=== PATIENT | female | born 1930 | race Caucasian/White ===

== ENCOUNTER 2016-07-23 19:20 | Inpatient (IN) | payer MEDICARE ==
[~2016-07-23] VITALS: Ht 152.4 cm; Wt 57.6 kg
[~2016-07-23 19:20] MED LIST: ALEVE220 MG PO; ASPIRIN81 M1 PO; ATIVAN0.5 MG PO; CHEW-IRON27 MG PO; CIPROFLOXACIN500 MG PO; CITALOPRAM HYDR20 MG PO; DILTIAZEM HCL180 MG PO; DOXYCYCLINE100 MG PO; HYDROCODONE BIT1 T11 PO; LANTUS SOLOS100 U/M1 SC; LEVAQUIN750 M1 PO; LOMOTIL 0.025 M1 TA1 PO; LOPRESSOR25 MG PO; LOSARTAN POTASS50 M1 PO; MIRALAX17 GM/DOSE PO; MIRTAZAPINE15 MG PO; MIRTAZAPINE30 M2 PO; Magnesium Oxid400 MG PO; NEURONTIN100 MG PO; NOVOLOG FLEX100 U/ML SC; OMEPRAZOLE D/R20 MG PO; PERCOCET 325 MG1 TA5 PO; PROBIOTIC FORMU1 CA1 PO; TEMAZEPAM30 MG PO; VENLAFAXINE HYD75 MG PO; VENTOLIN H0.09 MG/AC INH; VITAMIN D5000 I2 PO; XARE15TA PO
[2016-07-23 19:30] VITALS: BP 171/95
[2016-07-23 20:02] LABS: BASO % 0.2 % (0.0-1.0); EOS % 0.2 % (1.0-4.0); HEMATOCRIT 41.7 % (37.0-47.0); HEMOGLOBIN 13.7 g/dl (12.0-16.0); IG # 0.1 10*3/uL (0.0-0.1); LYMPH # 2.4 10*3/uL (1.3-4.4); LYMPH % 15.9 % (27.0-41.0); MEAN CELL VOLUME 83.7 fl (81.0-99.0); MEAN CORPUSCULAR HGB 27.5 pg (27.0-31.0); MEAN CORPUSCULAR HGB CONC 32.9 g/dl (33.0-37.0); MEAN PLATELET VOLUME 11.8 fl (9.6-12.3); MONO # 1.3 10*3/uL (0.1-1.0); MONO % 8.5 % (3.0-9.0); NEUT # 11.3 10*3/uL (2.3-7.9); NEUT % 74.9 % (47.0-73.0); PLATELET COUNT AUTOMATED 240 10*3/uL (130-400); RED BLOOD COUNT 4.98 10*6/uL (4.10-5.10); RED CELL DISTRI WIDTH 14.7 % (0-14.5); WHITE BLOOD COUNT 15.1 10*3/uL (4.8-10.8)
[2016-07-23 20:26] LABS: BILIRUBIN, TOTAL 0.7 mg/dl (0.2-1.0); POTASSIUM 4.9 mmol/L (3.5-5.1); TOTAL PROTEIN 8.8 gm/dL (6.4-8.2)
[2016-07-23 20:35] VITALS: BP 144/66
[2016-07-23 20:49] LABS: TROPONIN I 0.047 ng/ml (<0.045)
[2016-07-23 21:46] LABS: BILIRUBIN 1+ (NEGATIVE); BLOOD 2+ (NEGATIVE); CLARITY SL CLOUDY (CLEAR); COLOR YELLOW (YELLOW); GLUCOSE NEGATIVE (NEGATIVE); KETONE 1+ (NEGATIVE); LEUKO ESTERASE 2+ (NEGATIVE); NITRITE NEGATIVE (NEGATIVE); PH 7.5 (5.0-9.0); PROTEIN 2+ (NEGATIVE); UROBILINOGEN 0.2 E.U./dl (0.2-1.0)
[2016-07-23 21:52] LABS: BACTERIA 4+; URINE REFLEX COMMENT YES (NO); WBC 16-20 wbc/hpf (0-5)
[2016-07-23 21:58] LABS: LA>2 REFLEX 2 HR DRAW NOW
[2016-07-23 23:15] VITALS: BP 162/86
[2016-07-24] VITALS: BP 162/86
[2016-07-24 06:39] LABS: BASO % 0.2 % (0.0-1.0); EOS # 0.1 10*3/uL (0.0-0.4); EOS % 0.6 % (1.0-4.0); LYMPH # 2.7 10*3/uL (1.3-4.4); LYMPH % 27.7 % (27.0-41.0); MEAN CELL VOLUME 85.7 fl (81.0-99.0); MEAN CORPUSCULAR HGB 27.8 pg (27.0-31.0); MEAN CORPUSCULAR HGB CONC 32.5 g/dl (33.0-37.0); MEAN PLATELET VOLUME 10.9 fl (9.6-12.3); MONO # 0.7 10*3/uL (0.1-1.0); MONO % 6.9 % (3.0-9.0); NEUT # 6.1 10*3/uL (2.3-7.9); NEUT % 64.4 % (47.0-73.0); PLATELET COUNT AUTOMATED 172 10*3/uL (130-400); RED BLOOD COUNT 3.99 10*6/uL (4.10-5.10); RED CELL DISTRI WIDTH 14.6 % (0-14.5); WHITE BLOOD COUNT 9.6 10*3/uL (4.8-10.8)
[2016-07-24 06:40] LABS: HEMATOCRIT 34.2 % (37.0-47.0); HEMOGLOBIN 11.1 g/dl (12.0-16.0)
[2016-07-24 07:06] LABS: BUN 24 mg/dl (7-24); CARBON DIOXIDE 31 mmol/L (21-32); CHLORIDE 102 mmol/L (98-107); CHOLESTEROL 228 mg/dL (<200); EST GLOM FILT AFRICAN AMERICAN > 60 ml/min; GLUCOSE 173 mg/dL (65-99); MAGNESIUM 1.5 mg/dL (1.5-2.1); PHOSPHOROUS 2.4 mg/dL (2.5-4.9); SODIUM 141 mmol/L (136-145); TRIGLYCERIDES 105 mg/dl (<150); VLDL CHOLESTEROL 21 mg/dL (6-40)
[2016-07-24 07:07] LABS: PROTHROMBIN TIME 10.5 SECONDS (9.0-12.4)
[2016-07-24 07:15] LABS: HDL CHOLESTEROL 84 mg/dl (40-60); LDL CHOLESTEROL 123 mg/dL (9-159)
[2016-07-24 07:44] LABS: POTASSIUM 3.2 mmol/L (3.5-5.1)
[2016-07-24 08:00] VITALS: BP 132/88
[2016-07-24 12:00] VITALS: BP 138/86
[2016-07-24 16:00] VITALS: BP 136/48
[2016-07-24 20:00] VITALS: BP 147/66
[2016-07-25] VITALS: BP 188/80
[2016-07-25 06:11] LABS: BASO % 0.5 % (0.0-1.0); EOS # 0.2 10*3/uL (0.0-0.4); EOS % 2.9 % (1.0-4.0); LYMPH # 2.7 10*3/uL (1.3-4.4); LYMPH % 40.2 % (27.0-41.0); MEAN CELL VOLUME 87.9 fl (81.0-99.0); MEAN CORPUSCULAR HGB 27.6 pg (27.0-31.0); MEAN CORPUSCULAR HGB CONC 31.4 g/dl (33.0-37.0); MEAN PLATELET VOLUME 11.8 fl (9.6-12.3); MONO # 0.5 10*3/uL (0.1-1.0); MONO % 7.4 % (3.0-9.0); NEUT # 3.2 10*3/uL (2.3-7.9); NEUT % 48.7 % (47.0-73.0); PLATELET COUNT AUTOMATED 149 10*3/uL (130-400); RED BLOOD COUNT 3.98 10*6/uL (4.10-5.10); RED CELL DISTRI WIDTH 14.8 % (0-14.5); WHITE BLOOD COUNT 6.6 10*3/uL (4.8-10.8)
[2016-07-25 06:40] LABS: ALBUMIN 2.8 gm/dl (3.1-4.5); ALKALINE PHOSPHATASE 74 U/L (45-117); BILIRUBIN, TOTAL 0.3 mg/dl (0.2-1.0); BUN 16 mg/dl (7-24); CARBON DIOXIDE 31 mmol/L (21-32); CHLORIDE 109 mmol/L (98-107); EST GLOM FILT AFRICAN AMERICAN > 60 ml/min; GLUCOSE 162 mg/dL (65-99); POTASSIUM 3.7 mmol/L (3.5-5.1); SGOT/AST 30 IU/L (3-35); SGPT/ALT 24 U/L (12-78); SODIUM 145 mmol/L (136-145); TOTAL PROTEIN 6.2 gm/dL (6.4-8.2)
[2016-07-25 08:00] VITALS: BP 150/58
[2016-07-25 12:00] VITALS: BP 153/47
[2016-07-25 16:00] VITALS: BP 148/62; BP 162/96
[2016-07-25 20:00] VITALS: BP 155/53
[2016-07-26] VITALS: BP 112/58
[2016-07-26 08:00] VITALS: BP 178/72
[2016-07-26] MEDS ORDERED: BACTRIM 400 MG-1 TAB PO (10:14)
[2016-07-26 12:25] LABS: FOLIC ACID > 24.00 ng/mL (>5.38)
== END 2016-07-26 11:43 | disposition home health service (06) | DRG 871 ==
LOC: ED 19:20 → 4E 22:25 → EDHOLD 22:25 → 4E 22:34
PROVIDERS: Internal Medicine; Internal Medicine Hospice and Palliative Medicine; Registered Nurse
DX: A41.9 Sepsis, unspecified organism (principal); G93.41 Metabolic encephalopathy; N17.0 Acute kidney failure with tubular necrosis; E87.2 Acidosis; J96.11 Chronic respiratory failure with hypoxia; N30.01 Acute cystitis with hematuria; F33.9 Major depressive disorder, recurrent, unspecified; R65.20 Severe sepsis without septic shock; E86.0 Dehydration; J44.9 Chronic obstructive pulmonary disease, unspecified; I25.10 Atherosclerotic heart disease of native coronary artery without angina pectoris; E55.9 Vitamin D deficiency, unspecified; F41.1 Generalized anxiety disorder; I10 Essential (primary) hypertension; K21.9 Gastro-esophageal reflux disease without esophagitis; E11.65 Type 2 diabetes mellitus with hyperglycemia; M54.5 Low back pain; B96.20 Unspecified Escherichia coli [E. coli] as the cause of diseases classified elsewhere; B96.89 Other specified bacterial agents as the cause of diseases classified elsewhere; Z96.653 Presence of artificial knee joint, bilateral; Z87.891 Personal history of nicotine dependence; Z79.51 Long term (current) use of inhaled steroids; Z99.81 Dependence on supplemental oxygen; Z79.4 Long term (current) use of insulin; Z79.82 Long term (current) use of aspirin; Z90.710 Acquired absence of both cervix and uterus; Z79.899 Other long term (current) drug therapy

== ENCOUNTER 2016-08-18 14:49 | Inpatient (IN) | payer MEDICARE ==
[~2016-08-18] VITALS: Ht 152.4 cm; Wt 60.6 kg
[~2016-08-18 14:49] MED LIST changes: +BACTRIM 400 MG-1 TAB PO
[2016-08-18 14:58] VITALS: BP 173/68
[2016-08-18 15:19] LABS: BASO % 0.2 % (0.0-1.0); EOS # 0.3 10*3/uL (0.0-0.4); EOS % 2.9 % (1.0-4.0); HEMATOCRIT 36.6 % (37.0-47.0); HEMOGLOBIN 11.4 g/dl (12.0-16.0); LYMPH # 2.9 10*3/uL (1.3-4.4); LYMPH % 25.6 % (27.0-41.0); MEAN CELL VOLUME 89.9 fl (81.0-99.0); MEAN CORPUSCULAR HGB CONC 31.1 g/dl (33.0-37.0); MEAN PLATELET VOLUME 11.4 fl (9.6-12.3); MONO # 0.7 10*3/uL (0.1-1.0); NEUT # 7.3 10*3/uL (2.3-7.9); PLATELET COUNT AUTOMATED 148 10*3/uL (130-400); RED BLOOD COUNT 4.07 10*6/uL (4.10-5.10); RED CELL DISTRI WIDTH 14.9 % (0-14.5); WHITE BLOOD COUNT 11.3 10*3/uL (4.8-10.8)
[2016-08-18 15:28] LABS: INTERNATIONAL NORM RATIO 0.9 (2.0-3.5); PROTHROMBIN TIME 9.7 SECONDS (9.0-12.4)
[2016-08-18 15:35] LABS: ALKALINE PHOSPHATASE 110 U/L (45-117); BILIRUBIN, TOTAL 0.3 mg/dl (0.2-1.0); BUN 25 mg/dl (7-24); CARBON DIOXIDE 37 mmol/L (21-32); CHLORIDE 103 mmol/L (98-107); EST GLOM FILT AFRICAN AMERICAN > 60 ml/min; GLUCOSE 170 mg/dL (65-99); POTASSIUM 4.8 mmol/L (3.5-5.1); SGOT/AST 15 IU/L (3-35); SGPT/ALT 17 U/L (12-78); SODIUM 143 mmol/L (136-145); TROPONIN I < 0.015 ng/ml (<0.045)
[2016-08-18 15:56] LABS: BILIRUBIN NEGATIVE (NEGATIVE); BLOOD NEGATIVE (NEGATIVE); CLARITY SL CLOUDY (CLEAR); COLOR YELLOW (YELLOW); GLUCOSE 1+ (NEGATIVE); KETONE NEGATIVE (NEGATIVE); LEUKO ESTERASE NEGATIVE (NEGATIVE); NITRITE NEGATIVE (NEGATIVE); PROTEIN TRACE (NEGATIVE); SPECIFIC GRAVITY 1.025 (1.005-1.030); UROBILINOGEN 0.2 E.U./dl (0.2-1.0)
[2016-08-18 16:10] LABS: URINE REFLEX COMMENT NO (NO); WBC 0-2 wbc/hpf (0-5)
[2016-08-18 16:16] VITALS: BP 183/78
[2016-08-18] MEDS ORDERED: ACETAMINOPHEN-H1 TA2 PO (17:30)
[2016-08-18] MEDS ORDERED: PROBIOTIC250 MG PO ×2 (17:32→18:51)
[2016-08-18 17:35] VITALS: BP 174/55
[2016-08-18 18:00] VITALS: BP 208/85
[2016-08-18] MEDS ORDERED: CARDIZEM CD180 MG PO (18:50)
[2016-08-18 20:00] VITALS: BP 170/82
[2016-08-18 21:00] VITALS: BP 164/69
[2016-08-19] VITALS: BP 122/64
[2016-08-19 06:51] LABS: BASO % 0.2 % (0.0-1.0); EOS # 0.2 10*3/uL (0.0-0.4); EOS % 2.1 % (1.0-4.0); HEMOGLOBIN 11.4 g/dl (12.0-16.0); LYMPH # 2.3 10*3/uL (1.3-4.4); LYMPH % 24.9 % (27.0-41.0); MEAN CORPUSCULAR HGB 28.5 pg (27.0-31.0); MEAN CORPUSCULAR HGB CONC 31.7 g/dl (33.0-37.0); MEAN PLATELET VOLUME 11.2 fl (9.6-12.3); MONO # 0.7 10*3/uL (0.1-1.0); MONO % 7.6 % (3.0-9.0); NEUT % 64.9 % (47.0-73.0); PLATELET COUNT AUTOMATED 144 10*3/uL (130-400); WHITE BLOOD COUNT 9.2 10*3/uL (4.8-10.8)
[2016-08-19 07:29] LABS: BUN 17 mg/dl (7-24); CARBON DIOXIDE 37 mmol/L (21-32); CHLORIDE 106 mmol/L (98-107); EST GLOM FILT AFRICAN AMERICAN > 60 ml/min; GLUCOSE 161 mg/dL (65-99); SODIUM 146 mmol/L (136-145)
[2016-08-19 07:39] LABS: THYROID STIM HORMONE (HS) 0.957 uIU/ml (0.358-4.75)
[2016-08-19 07:51] LABS: POTASSIUM 3.8 mmol/L (3.5-5.1)
[2016-08-19 08:00] VITALS: BP 190/98; BP 198/100
[2016-08-19 12:00] VITALS: BP 148/74
[2016-08-19 16:00] VITALS: BP 126/53
[2016-08-19 20:00] VITALS: BP 146/60
[2016-08-20] VITALS: BP 113/67
[2016-08-20 08:00] VITALS: BP 161/61
[2016-08-20] MEDS ORDERED: NATURE'S BLEN1000 IU PO (11:27)
[2016-08-20] MEDS ORDERED: LISINOPRIL5 MG PO (11:27)
[2016-08-20] MEDS ORDERED: LANTUS SOLOS100 U/M1 SC (11:27)
[2016-08-20] MEDS ORDERED: GLUCOPHAGE500 MG PO (11:27)
[2016-08-20 12:00] VITALS: BP 120/56
== END 2016-08-20 14:47 | disposition home health service (06) | DRG 640 ==
LOC: ED 14:49 → 4E 17:03
PROVIDERS: Internal Medicine Hospice and Palliative Medicine; Physician Assistant
DX: E86.0 Dehydration (principal); G93.41 Metabolic encephalopathy; J96.11 Chronic respiratory failure with hypoxia; E44.0 Moderate protein-calorie malnutrition; I16.1 Hypertensive emergency; F03.90 Unspecified dementia, unspecified severity, without behavioral disturbance, psychotic disturbance, mood disturbance, and anxiety; E11.65 Type 2 diabetes mellitus with hyperglycemia; Z99.81 Dependence on supplemental oxygen; I25.10 Atherosclerotic heart disease of native coronary artery without angina pectoris; J44.9 Chronic obstructive pulmonary disease, unspecified; Z96.653 Presence of artificial knee joint, bilateral; F32.9 Major depressive disorder, single episode, unspecified; D64.9 Anemia, unspecified; D72.829 Elevated white blood cell count, unspecified; K21.9 Gastro-esophageal reflux disease without esophagitis; W19.XXXA Unspecified fall, initial encounter; E55.9 Vitamin D deficiency, unspecified; F41.1 Generalized anxiety disorder; I10 Essential (primary) hypertension; M54.5 Low back pain; Z90.710 Acquired absence of both cervix and uterus; Z87.891 Personal history of nicotine dependence; I25.2 Old myocardial infarction; Z79.82 Long term (current) use of aspirin; Z79.4 Long term (current) use of insulin; Z79.899 Other long term (current) drug therapy; Z68.26 Body mass index [BMI] 26.0-26.9, adult; R53.1 Weakness

== ENCOUNTER 2016-09-24 15:24 | Inpatient (IN) | payer MEDICARE ==
[~2016-09-24] VITALS: Ht 157.5 cm; Wt 58.7 kg
[~2016-09-24 15:24] MED LIST changes: +ACETAMINOPHEN-H1 TA2 PO; +CARDIZEM CD180 MG PO; +GLUCOPHAGE500 MG PO; +LISINOPRIL5 MG PO; +NATURE'S BLEN1000 IU PO; +PROBIOTIC250 MG PO
[2016-09-24 16:12] VITALS: BP 146/77
[2016-09-24] MEDS ORDERED: METFORMIN500 MG PO (16:14)
[2016-09-24 16:49] LABS: BASO # 0.1 10*3/uL (0.0-0.1); BASO % 0.7 % (0.0-1.0); EOS # 0.4 10*3/uL (0.0-0.4); EOS % 4.4 % (1.0-4.0); HEMOGLOBIN 12.1 g/dl (12.0-16.0); LYMPH # 3.1 10*3/uL (1.3-4.4); LYMPH % 35.2 % (27.0-41.0); MEAN CELL VOLUME 91.8 fl (81.0-99.0); MEAN CORPUSCULAR HGB 28.5 pg (27.0-31.0); MEAN PLATELET VOLUME 11.3 fl (9.6-12.3); MONO # 0.5 10*3/uL (0.1-1.0); MONO % 5.6 % (3.0-9.0); NEUT # 4.7 10*3/uL (2.3-7.9); NEUT % 53.9 % (47.0-73.0); PLATELET COUNT AUTOMATED 259 10*3/uL (130-400); RED BLOOD COUNT 4.25 10*6/uL (4.10-5.10); RED CELL DISTRI WIDTH 14.5 % (0-14.5); WHITE BLOOD COUNT 8.7 10*3/uL (4.8-10.8)
[2016-09-24 17:05] LABS: ALBUMIN 3.4 gm/dl (3.1-4.5); ALKALINE PHOSPHATASE 83 U/L (45-117); BILIRUBIN, TOTAL 0.3 mg/dl (0.2-1.0); BUN 22 mg/dl (7-24); C-REACTIVE PROTEIN 2.78 MG/DL (0-0.3); CARBON DIOXIDE 32 mmol/L (21-32); CHLORIDE 102 mmol/L (98-107); CKMB 0.8 ng/ml (0.5-3.6); CPK 32 U/L (26-192); EST GLOM FILT AFRICAN AMERICAN 45 ml/min; GLUCOSE 175 mg/dL (65-99); MAGNESIUM 1.7 mg/dL (1.5-2.1); SGOT/AST 17 IU/L (3-35); SGPT/ALT 15 U/L (12-78); SODIUM 143 mmol/L (136-145); TOTAL PROTEIN 8.1 gm/dL (6.4-8.2)
[2016-09-24 17:07] LABS: PROTHROMBIN TIME 10.3 SECONDS (9.0-12.4); TROPONIN I < 0.015 ng/ml (<0.045)
[2016-09-24 17:07] LABS: BILIRUBIN 1+ (NEGATIVE); BLOOD TRACE-LYSED (NEGATIVE); CLARITY SL CLOUDY (CLEAR); COLOR YELLOW (YELLOW); GLUCOSE NEGATIVE (NEGATIVE); KETONE TRACE (NEGATIVE); LEUKO ESTERASE 1+ (NEGATIVE); NITRITE NEGATIVE (NEGATIVE); PH 5.5 (5.0-9.0); PROTEIN TRACE (NEGATIVE); SPECIFIC GRAVITY 1.025 (1.005-1.030); UROBILINOGEN 0.2 E.U./dl (0.2-1.0)
[2016-09-24 17:25] LABS: BACTERIA 2+; WBC 21-30 wbc/hpf (0-5)
[2016-09-24 17:26] LABS: URINE REFLEX COMMENT YES (NO)
[2016-09-24 18:42] VITALS: BP 165/89
[2016-09-24 19:10] VITALS: BP 152/80
[2016-09-24 19:30] VITALS: BP 143/89
[2016-09-24 19:50] VITALS: BP 143/89
[2016-09-25] VITALS: BP 150/52
[2016-09-25 04:00] VITALS: BP 160/83
[2016-09-25 06:21] LABS: BUN 15 mg/dl (7-24); CARBON DIOXIDE 31 mmol/L (21-32); CHLORIDE 106 mmol/L (98-107); EST GLOM FILT AFRICAN AMERICAN > 60 ml/min; GLUCOSE 140 mg/dL (65-99); MAGNESIUM 1.3 mg/dL (1.5-2.1); POTASSIUM 3.7 mmol/L (3.5-5.1); SODIUM 143 mmol/L (136-145)
[2016-09-25 06:25] LABS: PHOSPHOROUS 2.8 mg/dL (2.5-4.9)
[2016-09-25 06:29] LABS: BASO % 0.4 % (0.0-1.0); EOS # 0.4 10*3/uL (0.0-0.4); EOS % 5.5 % (1.0-4.0); HEMATOCRIT 32.5 % (37.0-47.0); HEMOGLOBIN 10.3 g/dl (12.0-16.0); LYMPH # 2.9 10*3/uL (1.3-4.4); LYMPH % 43.2 % (27.0-41.0); MEAN CELL VOLUME 91.3 fl (81.0-99.0); MEAN CORPUSCULAR HGB 28.9 pg (27.0-31.0); MEAN CORPUSCULAR HGB CONC 31.7 g/dl (33.0-37.0); MEAN PLATELET VOLUME 11.3 fl (9.6-12.3); MONO # 0.6 10*3/uL (0.1-1.0); MONO % 8.4 % (3.0-9.0); NEUT # 2.8 10*3/uL (2.3-7.9); NEUT % 42.2 % (47.0-73.0); PLATELET COUNT AUTOMATED 197 10*3/uL (130-400); RED BLOOD COUNT 3.56 10*6/uL (4.10-5.10); RED CELL DISTRI WIDTH 14.1 % (0-14.5); WHITE BLOOD COUNT 6.7 10*3/uL (4.8-10.8)
[2016-09-25 06:30] LABS: PROTHROMBIN TIME 10.9 SECONDS (9.0-12.4)
[2016-09-25 08:00] VITALS: BP 128/68
[2016-09-25 12:00] VITALS: BP 116/67
[2016-09-25] MEDS ORDERED: TEMOVATE0.05% T (13:20)
[2016-09-25 16:00] VITALS: BP 163/71
[2016-09-25 20:00] VITALS: BP 149/55
[2016-09-26] VITALS: BP 138/60
[2016-09-26 05:28] VITALS: BP 160/70
[2016-09-26 05:47] LABS: BASO % 0.3 % (0.0-1.0); EOS # 0.4 10*3/uL (0.0-0.4); EOS % 5.1 % (1.0-4.0); HEMATOCRIT 32.5 % (37.0-47.0); HEMOGLOBIN 10.2 g/dl (12.0-16.0); LYMPH # 2.2 10*3/uL (1.3-4.4); LYMPH % 31.2 % (27.0-41.0); MEAN CELL VOLUME 91.5 fl (81.0-99.0); MEAN CORPUSCULAR HGB 28.7 pg (27.0-31.0); MEAN CORPUSCULAR HGB CONC 31.4 g/dl (33.0-37.0); MEAN PLATELET VOLUME 11.3 fl (9.6-12.3); MONO # 0.6 10*3/uL (0.1-1.0); MONO % 8.2 % (3.0-9.0); NEUT # 3.9 10*3/uL (2.3-7.9); NEUT % 54.9 % (47.0-73.0); PLATELET COUNT AUTOMATED 182 10*3/uL (130-400); RED BLOOD COUNT 3.55 10*6/uL (4.10-5.10); RED CELL DISTRI WIDTH 14.1 % (0-14.5); WHITE BLOOD COUNT 7.1 10*3/uL (4.8-10.8)
[2016-09-26 05:58] LABS: ALBUMIN 2.7 gm/dl (3.1-4.5); ALKALINE PHOSPHATASE 60 U/L (45-117); BILIRUBIN, TOTAL 0.1 mg/dl (0.2-1.0); BUN 7 mg/dl (7-24); CARBON DIOXIDE 32 mmol/L (21-32); CHLORIDE 109 mmol/L (98-107); EST GLOM FILT AFRICAN AMERICAN > 60 ml/min; POTASSIUM 3.4 mmol/L (3.5-5.1); SGOT/AST 18 IU/L (3-35); SGPT/ALT 12 U/L (12-78); SODIUM 149 mmol/L (136-145); TOTAL PROTEIN 6.4 gm/dL (6.4-8.2)
[2016-09-26 06:21] LABS: GLUCOSE 47 mg/dL (65-99)
[2016-09-26 08:00] VITALS: BP 174/50
[2016-09-26 12:00] VITALS: BP 144/54
[2016-09-26] MEDS ORDERED: LEVEMIR10 ML SC (12:59)
[2016-09-26] MEDS ORDERED: BACTRIM DS 8001 TAB PO (12:59)
== END 2016-09-26 15:50 | disposition home health service (06) | DRG 682 ==
LOC: ED 15:24 → EDHOLD 18:13 → 4E 18:13
PROVIDERS: Emergency Medicine; Family Medicine; Internal Medicine
DX: N17.0 Acute kidney failure with tubular necrosis (principal); G93.41 Metabolic encephalopathy; E44.0 Moderate protein-calorie malnutrition; E11.65 Type 2 diabetes mellitus with hyperglycemia; N39.0 Urinary tract infection, site not specified; I25.10 Atherosclerotic heart disease of native coronary artery without angina pectoris; Z96.653 Presence of artificial knee joint, bilateral; E86.0 Dehydration; J44.9 Chronic obstructive pulmonary disease, unspecified; F41.9 Anxiety disorder, unspecified; I10 Essential (primary) hypertension; F32.9 Major depressive disorder, single episode, unspecified; R26.81 Unsteadiness on feet; B96.1 Klebsiella pneumoniae [K. pneumoniae] as the cause of diseases classified elsewhere; K21.9 Gastro-esophageal reflux disease without esophagitis; D64.9 Anemia, unspecified; E83.42 Hypomagnesemia; Z88.8 Allergy status to other drugs, medicaments and biological substances; Z90.710 Acquired absence of both cervix and uterus; Z87.891 Personal history of nicotine dependence; Z79.82 Long term (current) use of aspirin; Z79.4 Long term (current) use of insulin; Z79.84 Long term (current) use of oral hypoglycemic drugs; Z79.899 Other long term (current) drug therapy; Z79.1 Long term (current) use of non-steroidal anti-inflammatories (NSAID); Z68.22 Body mass index [BMI] 22.0-22.9, adult

== ENCOUNTER 2016-12-17 01:27 | Inpatient (IN) | payer MEDICARE ==
[~2016-12-17] VITALS: Ht 152.4 cm; Wt 62.8 kg
[2016-12-17] VITALS (16 sets, daily range): BP systolic 74–183; BP diastolic 30–70
--- NOTE | ~2016-12-17 | CON ---
[place], [place] REPORT OF CONSULTATION NAME: [id number] UNIT #: [id number] ROOM: 419 DOCTOR: PATRICK RAMIREZ MD BIRTHDATE: [birth year] DOS: REQUESTING PHYSICIAN: Dr. Efra Aguilar. The patient was seen and examined by myself. Notes and records were reviewed. The patient's presentation with fall with subsequent slight drop in blood pressure that responded well to IV fluid in face of her urinary tract infection. From the Cardiology point of view, the patient does not have any complaints. Her lab tests are from the cardiac point of view are normal. I will be signing off on this patient and we would request a call should there be any change in her symptoms. There is no need for followup with us. PATRICK RAMIREZ MD CM:CONSTR:REPORT OF CONSULTATION 1209 12/17/16 2258 interface
[~2016-12-17 01:27] MED LIST changes: +BACTRIM DS 8001 TAB PO; +LEVEMIR10 ML SC; +METFORMIN500 MG PO; +TEMOVATE0.05% T
[2016-12-17 01:53] LABS: BASO # 0.1 10*3/uL (0.0-0.1); BASO % 0.4 % (0.0-1.0); EOS # 0.7 10*3/uL (0.0-0.4); HEMATOCRIT 36.1 % (37.0-47.0); HEMOGLOBIN 11.6 g/dl (12.0-16.0); LYMPH # 3.2 10*3/uL (1.3-4.4); LYMPH % 24.6 % (27.0-41.0); MEAN CELL VOLUME 86.4 fl (81.0-99.0); MEAN CORPUSCULAR HGB 27.8 pg (27.0-31.0); MEAN CORPUSCULAR HGB CONC 32.1 g/dl (33.0-37.0); MONO # 0.9 10*3/uL (0.1-1.0); MONO % 6.6 % (3.0-9.0); NEUT # 8.3 10*3/uL (2.3-7.9); NEUT % 63.2 % (47.0-73.0); PLATELET COUNT AUTOMATED 186 10*3/uL (130-400); RED BLOOD COUNT 4.18 10*6/uL (4.10-5.10); RED CELL DISTRI WIDTH 14.1 % (0-14.5); WHITE BLOOD COUNT 13.1 10*3/uL (4.8-10.8)
[2016-12-17 02:04] LABS: ACT PARTIAL THROMBO TIME 24.9 SECONDS (20.8-31.5)
[2016-12-17 02:20] LABS: ALBUMIN 2.8 gm/dl (3.1-4.5); ALKALINE PHOSPHATASE 80 U/L (45-117); BUN 19 mg/dl (7-24); CHLORIDE 101 mmol/L (98-107); CKMB 0.7 ng/ml (0.5-3.6); CPK 63 U/L (26-192); CREATININE 1.35 mg/dL (0.55-1.02); LIPASE 69 U/L (73-393); MAGNESIUM 1.9 mg/dL (1.5-2.1); POTASSIUM 3.4 mmol/L (3.5-5.1); SGOT/AST 20 IU/L (3-35); SGPT/ALT 11 U/L (12-78); SODIUM 137 mmol/L (136-145); TOTAL PROTEIN 6.6 gm/dL (6.4-8.2)
[2016-12-17 02:22] LABS: TROPONIN I < 0.015 ng/ml (<0.045)
[2016-12-17 03:10] LABS: BILIRUBIN NEGATIVE (NEGATIVE); BLOOD TRACE-INTACT (NEGATIVE); CLARITY CLOUDY (CLEAR); COLOR YELLOW (YELLOW); GLUCOSE NEGATIVE (NEGATIVE); KETONE NEGATIVE (NEGATIVE); LEUKO ESTERASE 2+ (NEGATIVE); NITRITE NEGATIVE (NEGATIVE); PH 5.5 (5.0-9.0); UROBILINOGEN 0.2 E.U./dl (0.2-1.0)
[2016-12-17 03:16] LABS: EPITHELIAL CELLS 35-40; WBC 51-100 wbc/hpf (0-5)
[2016-12-17 03:17] LABS: BACTERIA 3+
--- NOTE | 2016-12-17 03:41 | NUR ---
PATIENT IN BED DAUGHTER AT BEDSIDE, PT A&O X3 DENIES DIZZYNESS CHEST PAIN OR SHORTNESS OF BREATH, RESP EASY PULSE OX 95% ON 2LPM
--- NOTE | 2016-12-17 04:05 | NUR ---
PATIENT RESTING DENIES PAIN WHILE LYING STILL, DAUGHTER AT BEDSIDE, RESP EASY
[2016-12-17 05:26] LABS: MAGNESIUM 1.6 mg/dL (1.5-2.1); PHOSPHOROUS 4.5 mg/dL (2.5-4.9)
[2016-12-17 05:31] LABS: THYROID STIM HORMONE (HS) 1.87 uIU/ml (0.358-4.75)
--- NOTE | 2016-12-17 07:10 | NUR ---
PATIENT REPORT ACCEPTED, PATIENT A&OX3, PATIENT CONTINUES TO COMPLAIN OF RIGTH LEG PAIN DESPITE MEDICATIONS EARLIER. PATIENT ORDERED CT SCAN OF AFFECTED LEG, STILL AWAITING BED PLACEMENT FOR ADMISSON. VITALS WITHIN NORMAL LIMITS.
[2016-12-17 09:08] LABS: BASO % 0.4 % (0.0-1.0); EOS # 0.4 10*3/uL (0.0-0.4); EOS % 3.7 % (1.0-4.0); HEMATOCRIT 34.2 % (37.0-47.0); HEMOGLOBIN 10.5 g/dl (12.0-16.0); LYMPH # 2.9 10*3/uL (1.3-4.4); LYMPH % 29.4 % (27.0-41.0); MEAN CELL VOLUME 89.3 fl (81.0-99.0); MEAN CORPUSCULAR HGB 27.4 pg (27.0-31.0); MEAN CORPUSCULAR HGB CONC 30.7 g/dl (33.0-37.0); MEAN PLATELET VOLUME 11.2 fl (9.6-12.3); MONO # 0.8 10*3/uL (0.1-1.0); MONO % 7.8 % (3.0-9.0); NEUT # 5.7 10*3/uL (2.3-7.9); NEUT % 58.4 % (47.0-73.0); PLATELET COUNT AUTOMATED 175 10*3/uL (130-400); RED BLOOD COUNT 3.83 10*6/uL (4.10-5.10); RED CELL DISTRI WIDTH 14.2 % (0-14.5); WHITE BLOOD COUNT 9.7 10*3/uL (4.8-10.8)
[2016-12-17 09:40] LABS: ALBUMIN 2.7 gm/dl (3.1-4.5); CREATININE 1.25 mg/dL (0.55-1.02); POTASSIUM 3.8 mmol/L (3.5-5.1); TOTAL PROTEIN 6.7 gm/dL (6.4-8.2)
--- NOTE | 2016-12-17 10:06 | NUR ---
PATIENT STILL AWAITING BED, VITALS STABLE, MEAL ORDERED, DENIES PAIN, ALERT AND ORIENTED.
--- NOTE | 2016-12-17 10:26 | NUR ---
MEAL TRAY REQUESTED AND PROVIDE. PT UP TO BEDSIDE TOILET.
--- NOTE | 2016-12-17 12:01 | NUR ---
IV FLUIDS AND ZITHROMAX INFUSING AT TIME OF ADMISSION TO THE FLOOR.
--- NOTE | 2016-12-17 12:07 | NUR ---
PT REPORTS MINIMAL IMPROVEMENT IN PAIN WITH NORCO DOSE.
--- NOTE | 2016-12-17 13:49 | NUR ---
NOTIFIED & OF CONSULTS.
--- NOTE | 2016-12-17 14:16 | NUR ---
PHYSICAL THERAPY Ortho note PWB LEFT LE with immobilzer at all times, off for bathing. Fib head fracture. PAtient evalauted on 4, full evalution to follow. Continue with PT as per plan of care with fall, PWB LEFT LE, immobilzer left le and mod (A) precautions. Significan pain and impaired mobility, will require SNF. PAtient is moderate complexity via chart review, tests and evaluation: [id number]. Thank you for this referral. Nani Marie,PT
--- NOTE | 2016-12-17 14:16 | NUR ---
Occupational Therapy evaluation completed on 4 with full eval to follow. 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 Recommend OT per POC and SNF upon d/c. Thank you for this referral. Oitlia Juarez OTR/L
[2016-12-17] MEDS ORDERED: LANTUS SOL100 UNIT/1 SQ (14:25)
[2016-12-17] MEDS ORDERED: VITAMIN D-32000 UNI1 PO (14:26)
[2016-12-17] MEDS ORDERED: NORCO 5-325 TA1 EACH PO (14:28)
--- NOTE | 2016-12-17 15:50 | NUR ---
A 86, admitted to , under the services of TOSHA Owusu DO with a diagnosis of FRACTURE, UTI, HYPOTENSION, BRADYCARDIA. Chief complaint is LEFT KNEE PAIN. Patient arrived via bed from ER. Monitor applied. Initial assessment completed. Vital signs taken and recorded. TOSHA OWUSU DO notified of admission to the unit. Orders received. See assessment for past medical history, medications and allergies. Patient and/or family oriented to unit. [facility]. Clothing/patient valuable form completed. HOLDEN LOPEZ
--- NOTE | 2016-12-17 17:11 | NUR ---
PT GIVEN 3 UNITS OF INSULIN. BLOOD SUGAR LEVEL 177. SEE MED REC.
--- NOTE | 2016-12-17 22:08 | NUR ---
PATIENT MEDICATED WITH NORCO PER PRN ORDER FOR C/O L. KNEE PAIN . RATED PAIN A 7/10 WITH 10 BEING THE WORST. SEE EMAR. REINFORCED USE OF CALL LIGHT.
[2016-12-18] VITALS: BP 143/58
[2016-12-18 05:54] LABS: BASO % 0.4 % (0.0-1.0); EOS # 0.6 10*3/uL (0.0-0.4); EOS % 8.6 % (1.0-4.0); HEMATOCRIT 33.5 % (37.0-47.0); HEMOGLOBIN 10.2 g/dl (12.0-16.0); LYMPH # 2.6 10*3/uL (1.3-4.4); LYMPH % 34.8 % (27.0-41.0); MEAN CELL VOLUME 90.1 fl (81.0-99.0); MEAN CORPUSCULAR HGB 27.4 pg (27.0-31.0); MEAN CORPUSCULAR HGB CONC 30.4 g/dl (33.0-37.0); MEAN PLATELET VOLUME 11.7 fl (9.6-12.3); MONO # 0.7 10*3/uL (0.1-1.0); NEUT # 3.5 10*3/uL (2.3-7.9); NEUT % 47.1 % (47.0-73.0); PLATELET COUNT AUTOMATED 149 10*3/uL (130-400); RED BLOOD COUNT 3.72 10*6/uL (4.10-5.10); WHITE BLOOD COUNT 7.4 10*3/uL (4.8-10.8)
[2016-12-18 06:18] LABS: BUN 11 mg/dl (7-24); CHLORIDE 112 mmol/L (98-107); CREATININE 0.88 mg/dL (0.55-1.02); SODIUM 145 mmol/L (136-145)
--- NOTE | 2016-12-18 06:36 | NUR ---
DR. MORALES NOTIFIED OF CRITICAL REFLEX OF 41. D 50 GIVEN
[2016-12-18 08:00] VITALS: BP 151/92; BP 208/86
--- NOTE | 2016-12-18 10:14 | NUR ---
PATIENT OFF FLOOR FOR SCHEDULED TESTING.
--- NOTE | 2016-12-18 11:44 | NUR ---
PATIENT REQUESTED AND RECEIVED PO NORCO PER PRN ORDER FOR C/O LEFT KNEE PAIN. RATES PAIN 10/10. WILL MONITOR EFFECTIVENESS. BP ELEVATED AT THIS TIME. WILL RECHECK AFTER PAIN IS RELIEVED.
--- NOTE | 2016-12-18 11:47 | NUR ---
PATIENT BLADDER SCANNED AT THIS TIME PER ORDER. THE GREATEST AMOUNT OF URINE RETAINED WAS 599 ML. NOTIFIED AT THIS TIME. PT STATES HESITANCY WHEN URINATING.
[2016-12-18 12:00] VITALS: BP 122/52
--- NOTE | 2016-12-18 13:56 | NUR ---
PAIN PILL EFFECTIVE PER PT. WILL CONTINUE TO MONITOR.
[2016-12-18 16:00] VITALS: BP 124/47
[2016-12-18 20:00] VITALS: BP 145/56
[2016-12-19] VITALS: BP 141/50
--- NOTE | 2016-12-19 05:10 | NUR ---
PRN PAIN MED GIVEN FOR 8/10 LEFT LEG PAIN.
--- NOTE | 2016-12-19 05:20 | NUR ---
PT BLOOD SUGAR = 53. PT GIVEN ONE ORANGE JUICE, 2 PEANUT BUTTERS AND CRACKERS. BLOOD SUGAR RECHECKED AT 0610 AT 85. PT ASYMPTOMATIC.
[2016-12-19 06:10] LABS: BASO % 0.4 % (0.0-1.0); EOS # 0.5 10*3/uL (0.0-0.4); HEMATOCRIT 30.9 % (37.0-47.0); HEMOGLOBIN 9.6 g/dl (12.0-16.0); LYMPH # 2.3 10*3/uL (1.3-4.4); LYMPH % 29.8 % (27.0-41.0); MEAN CELL VOLUME 88.5 fl (81.0-99.0); MEAN CORPUSCULAR HGB 27.5 pg (27.0-31.0); MEAN CORPUSCULAR HGB CONC 31.1 g/dl (33.0-37.0); MEAN PLATELET VOLUME 11.9 fl (9.6-12.3); MONO # 0.7 10*3/uL (0.1-1.0); MONO % 8.6 % (3.0-9.0); NEUT # 4.2 10*3/uL (2.3-7.9); NEUT % 53.9 % (47.0-73.0); PLATELET COUNT AUTOMATED 156 10*3/uL (130-400); RED BLOOD COUNT 3.49 10*6/uL (4.10-5.10); RED CELL DISTRI WIDTH 14.2 % (0-14.5); WHITE BLOOD COUNT 7.8 10*3/uL (4.8-10.8)
--- NOTE | 2016-12-19 06:10 | NUR ---
PRN PAIN MED EFFECTIVE, PT REPORTS PAIN AT 5/10.
[2016-12-19 06:30] LABS: BUN 6 mg/dl (7-24); CHLORIDE 107 mmol/L (98-107); CREATININE 0.76 mg/dL (0.55-1.02); POTASSIUM 3.5 mmol/L (3.5-5.1); SODIUM 142 mmol/L (136-145)
--- NOTE | 2016-12-19 07:33 | NUR ---
Shift chart check completed.
[2016-12-19 08:00] VITALS: BP 138/51
[2016-12-19 11:57] VITALS: BP 143/54
[2016-12-19 16:00] VITALS: BP 152/50
[2016-12-19 20:00] VITALS: BP 161/61
--- NOTE | 2016-12-19 21:00 | NUR ---
PT STATES THAT PAIN MED WAS EFFECTIVE. ASSISTED TO BSC. KNEE IMMOBILIZER INTACT.
[2016-12-20] VITALS: BP 151/55
--- NOTE | 2016-12-20 01:16 | NUR ---
24 HR chart check completed.
--- NOTE | 2016-12-20 05:48 | NUR ---
BS VIA GLUCOMETER READS CL OF 46. PT A&O. DRINKING OJ AND EATING A TANA CHIP COOKIE. STAT REFLUX ORDERED.
[2016-12-20 06:29] LABS: BUN 8 mg/dl (7-24); CHLORIDE 105 mmol/L (98-107); CREATININE 0.63 mg/dL (0.55-1.02); SODIUM 144 mmol/L (136-145)
--- NOTE | 2016-12-20 06:35 | NUR ---
DR. CHAVEZ NOTIFIED OF CL BS OF 39 AND PT DRINKING AND EATING AND A&O. ADVISED TO HAVE PT DRINK MORE OJ.
[2016-12-20 08:00] VITALS: BP 160/60
--- NOTE | 2016-12-20 08:58 | NUR ---
PHYSICAL THERAPY Maggie was seen this AM 1:1 for her therapy session. Pt supine in bed and said no not now later for her therapy. ANA ALEXANDRA RUBBER BOOTS AND SHOES REPAIRER.
--- NOTE | 2016-12-20 09:35 | NUR ---
MEDICATED WITH PRN PO DULCOLAX FOR CONSTIPATION.
--- NOTE | 2016-12-20 11:33 | NUR ---
PATIENT SEEN 1:1 THIS DATE 20 MINUTES. PATIENT IDENTIFIED BY NAME AND DATE OF . PATIENT ON BESIDE COMMODE UPON ENTERING ROOM THIS DATE. KNEE IMMOBILIZER WORN THROUGHOUT SESSION THIS DATE.PATIENT COMPLETED TOILETING BRAXTON WITH EDUCATION USE FWW FOR SAFETY CARRY OVER PWB LLE AND MOD VERBAL CUES REQUIRED. PATIENT COMPLETED STAND PIVOT TRANSFER USE FWW CGA/BRAXTON BSC TO BED AND COMPLETED STAND PIVOT TRANSFER USE FWW BED TO RECLINES CGA/BRAXTON WITH VERBAL CUES SAFETY PRECAUTIONS. PATIENT REPORTS ALREADY WASHED UP TODAY WITH CLEAN GOWN. PATIENT WITH NURSING UPON LEAVING ROOM. KHUSHBOO LORENZANA/Max
[2016-12-20 12:00] VITALS: BP 150/50
--- NOTE | 2016-12-20 13:01 | NUR ---
PHYSICAL THERAPY Maggie was seen this PM 1:1 for her therapy. Maggie said that she just got back into bed from being up in her bedside chair and before that she walked into her bathroom from her bed with her nurse, wheeled walker and was PWB with immobilzer on. Pt having no complaint and said tomorrow morning she would go. ANA ALEXANDRA INVENTORY TRANSCRIBER.
--- NOTE | 2016-12-20 15:37 | NUR ---
OCCUPATIONAL THERAPY CO-SIGN I approve of the Occupational Therapy notes written above. FLORENTINO HOLCOMB OTR/Max
[2016-12-20 16:00] VITALS: BP 155/69
[2016-12-20 20:00] VITALS: BP 148/52
--- NOTE | 2016-12-20 20:00 | NUR ---
PATIENT RESTING IN BED WITH DAUGHTER AT BEDSIDE. NO NEEDS MADE. NO S/S OF DISTRESS. BED IN LOWEST POSITION, CALL LIGHT IN REACH
--- NOTE | 2016-12-20 21:13 | NUR ---
DR WOLF AWARE OF BG 120 AND PATIENT GLUCOSE 39 THIS AM. STATES TO HOLD TAYE LEONARD
--- NOTE | 2016-12-20 23:54 | NUR ---
PATIENT RESTING WITH EYES CLOSED. RESPS EASY AND REGULAR. MEDICATION SEEMS EFFECTIVE
[2016-12-21] VITALS: BP 132/52
--- NOTE | 2016-12-21 01:04 | NUR ---
24 HR chart check completed.
--- NOTE | 2016-12-21 03:24 | NUR ---
PATIENT RESTING WITH NO S/S OF DISTRESS.RESPS EASY AND REGULAR. BED IN LOWEST POSITION, CALL LIGHT IN REACH
--- NOTE | 2016-12-21 03:26 | NUR ---
PATIENT REACHING DOWN TO END OF BED TO TURN BED ALARM OFF HERSELF. EDUCATED ABOUT IMPORTANCE OF BED ALARM FOR HER SAFETY. BED ALARM INTACT
--- NOTE | 2016-12-21 07:40 | NUR ---
PT RESTING IN BED, ASSISTED UP TO BSC AND BACK TO BED. TOLERATED ROUTINE MED WITH NO PROBLEM. NO C/O AT THIS TIME. CALL LIGHT IN REACH. SEE SHIFT ASSESSMENT. BED ALARM ON.
[2016-12-21 08:00] VITALS: BP 152/84
--- NOTE | 2016-12-21 08:16 | NUR ---
enterprise resource planner in to see patient to discuss possible snf placement for rehab. Patient is refusing and stated she gets around fine at home, her daughter is there to help her. Talked about patient falling at home and stated a couple weeks of therapy could help make her stronger, patient still refusing. She stated she has [facility] coming into the home and will continue that with physical therapy.
--- NOTE | 2016-12-21 10:50 | NUR ---
liaison planner called into patients room, daughter at bedside. Patient agreed to short term rehab. Provided list of facilities, patient asked to be referred to 1. the [facility] or 2 [facility]. Will contact facilities and fax referral.
--- NOTE | 2016-12-21 11:24 | NUR ---
PHYSICAL THERAPY CO-SIGN I approve of the Phyical Therapy notes written above. SHREYA VELIZ PT
[2016-12-21 12:00] VITALS: BP 150/70
--- NOTE | 2016-12-21 12:39 | NUR ---
PT C/O BACK PAIN, RATES PAIN 8 ON PAIN SCALE 0-10. MEDICATED WITH NORCO PO PER PRN ORDER, SEE EMAR. CALL LIGHT IN REACH.
--- NOTE | 2016-12-21 13:03 | NUR ---
Faxed referral to [facility], waiting on acceptance, completed hospital exemption online in [employer] system
--- NOTE | 2016-12-21 13:09 | NUR ---
PHYSICAL THERAPY Maggie was seen this AM 1:1 for her therapy treatment and was sleeping sound. Stopped back later and Pt on her bedside commode. When i came back again Maggie was back in bed from being up in her bedsid chair. ANA ALEXANDRA WAFER PRODUCTION WORKER.
--- NOTE | 2016-12-21 13:12 | NUR ---
PHYSICAL THERAPY Mrs Shelton was seen this PM 1:1 and was back supine in bed. Maggie said that she just got back in bed and her daughter is coming in to seen about being D/C. ANA ALEXANDRA PTA.
--- NOTE | 2016-12-21 13:20 | NUR ---
SITTING UP IN CHAIR STATES MEDICATION HELP. CALL LIGHT IN [facility].
--- NOTE | 2016-12-21 15:07 | NUR ---
Patient has been accepted to the new [facility] at the [facility]. In to notifiy patient, she stated her daughter will transport this evening. Notified nurse and skilled nursing as patient is already discharged.
--- NOTE | 2016-12-21 15:36 | NUR ---
REPORT GIVEN TO ALLY AT [facility]. PT TO BE TRANSFERED THERE VIA PRIVATE CAR BY DAUGHTER.
--- NOTE | 2016-12-22 07:28 | NUR ---
PHYSICAL THERAPY CO-SIGN I approve of the Phyical Therapy notes written above. SHREYA VELIZ PT
== END 2016-12-21 15:36 | disposition other institution (70) | DRG 533 ==
LOC: ED 01:27 → EDHOLD 02:53 → 4E 02:53
PROVIDERS: Internal Medicine; Student in an Organized Health Care Education/Training Program; ADMIT Internal Medicine
DX: S72.412A Displaced unspecified condyle fracture of lower end of left femur, initial encounter for closed fracture (principal); J96.21 Acute and chronic respiratory failure with hypoxia; E43 Unspecified severe protein-calorie malnutrition; N17.9 Acute kidney failure, unspecified; I95.9 Hypotension, unspecified; E11.65 Type 2 diabetes mellitus with hyperglycemia; E11.649 Type 2 diabetes mellitus with hypoglycemia without coma; Z99.81 Dependence on supplemental oxygen; J44.9 Chronic obstructive pulmonary disease, unspecified; N30.00 Acute cystitis without hematuria; D64.9 Anemia, unspecified; W18.39XA Other fall on same level, initial encounter; E78.00 Pure hypercholesterolemia, unspecified; E87.6 Hypokalemia; I25.10 Atherosclerotic heart disease of native coronary artery without angina pectoris; F41.9 Anxiety disorder, unspecified; I10 Essential (primary) hypertension; F32.9 Major depressive disorder, single episode, unspecified; K21.9 Gastro-esophageal reflux disease without esophagitis; K57.90 Diverticulosis of intestine, part unspecified, without perforation or abscess without bleeding; G89.29 Other chronic pain; M54.5 Low back pain; Z96.653 Presence of artificial knee joint, bilateral; M25.462 Effusion, left knee; Z87.440 Personal history of urinary (tract) infections; Z79.4 Long term (current) use of insulin; Y99.8 Other external cause status; Y92.89 Other specified places as the place of occurrence of the external cause; Y93.89 Activity, other specified; Z88.8 Allergy status to other drugs, medicaments and biological substances; Z79.899 Other long term (current) drug therapy; Z90.710 Acquired absence of both cervix and uterus; Z87.891 Personal history of nicotine dependence; I25.2 Old myocardial infarction; Z79.82 Long term (current) use of aspirin; Z68.27 Body mass index [BMI] 27.0-27.9, adult

== ENCOUNTER → 2016-12-31 | Outpatient (CLI) | payer MEDICARE ==
[~2016-12-31] MED LIST changes: +LANTUS SOL100 UNIT/1 SQ; +NORCO 5-325 TA1 EACH PO; +VITAMIN D-32000 UNI1 PO
== END | disposition home or self-care (01) ==
LOC: ORTHO 01:05
DX: S72.412D Displaced unspecified condyle fracture of lower end of left femur, subsequent encounter for closed fracture with routine healing (principal); X58.XXXD Exposure to other specified factors, subsequent encounter

== ENCOUNTER 2017-01-15 16:12 | Emergency (ER) | payer MEDICARE ==
[2017-01-15 17:06] LABS: BASO % 0.4 % (0.0-1.0); EOS # 0.1 10*3/uL (0.0-0.4); HEMATOCRIT 33.5 % (37.0-47.0); HEMOGLOBIN 10.8 g/dl (12.0-16.0); LYMPH # 2.3 10*3/uL (1.3-4.4); LYMPH % 32.5 % (27.0-41.0); MEAN CELL VOLUME 84.8 fl (81.0-99.0); MEAN CORPUSCULAR HGB 27.3 pg (27.0-31.0); MEAN CORPUSCULAR HGB CONC 32.2 g/dl (33.0-37.0); MEAN PLATELET VOLUME 11.1 fl (9.6-12.3); MONO # 0.7 10*3/uL (0.1-1.0); MONO % 9.9 % (3.0-9.0); NEUT # 3.9 10*3/uL (2.3-7.9); NEUT % 54.9 % (47.0-73.0); PLATELET COUNT AUTOMATED 186 10*3/uL (130-400); RED BLOOD COUNT 3.95 10*6/uL (4.10-5.10); RED CELL DISTRI WIDTH 14.3 % (0-14.5); WHITE BLOOD COUNT 7.1 10*3/uL (4.8-10.8)
[2017-01-15 17:14] LABS: ACT PARTIAL THROMBO TIME 23.7 SECONDS (20.8-31.5)
[2017-01-15 17:21] LABS: ALBUMIN 3.6 gm/dl (3.1-4.5); CREATININE 1.06 mg/dL (0.55-1.02); POTASSIUM 3.5 mmol/L (3.5-5.1); TOTAL PROTEIN 8.1 gm/dL (6.4-8.2)
[2017-01-15 19:47] LABS: BILIRUBIN NEGATIVE (NEGATIVE); BLOOD NEGATIVE (NEGATIVE); CLARITY CLEAR (CLEAR); COLOR YELLOW (YELLOW); GLUCOSE NEGATIVE (NEGATIVE); KETONE NEGATIVE (NEGATIVE); LEUKO ESTERASE NEGATIVE (NEGATIVE); NITRITE NEGATIVE (NEGATIVE); SPECIFIC GRAVITY <= 1.005 (1.005-1.030); UROBILINOGEN 0.2 E.U./dl (0.2-1.0)
[2017-01-15 19:57] LABS: BACTERIA TRACE; RBC 0-2 rbc/hpf (0-2)
== END 2017-01-15 20:01 | disposition home or self-care (01) ==
LOC: ED 16:12
PROVIDERS: Nurse Practitioner Family
DX: K52.9 Noninfective gastroenteritis and colitis, unspecified (principal); I10 Essential (primary) hypertension; F32.9 Major depressive disorder, single episode, unspecified; K21.9 Gastro-esophageal reflux disease without esophagitis; E11.9 Type 2 diabetes mellitus without complications; Z90.710 Acquired absence of both cervix and uterus; Z96.653 Presence of artificial knee joint, bilateral; Z88.8 Allergy status to other drugs, medicaments and biological substances

== ENCOUNTER → 2017-01-21 | Outpatient (CLI) | payer MEDICARE | END | disposition home or self-care (01) | LOC: ORTHO 02:50 | DX: M25.462 Effusion, left knee (principal); M81.0 Age-related osteoporosis without current pathological fracture ==

== ENCOUNTER 2017-05-02 23:41 | Inpatient (IN) | payer MEDICARE ==
[~2017-05-02] VITALS: Ht 152.4 cm; Wt 55.0 kg
[~2017-05-02 23:41] MED LIST changes: -CARDIZEM CD180 MG PO; +CARTIA XT180 MG PO; -NORCO 5-325 TA1 EACH PO; +NORCO 7.5-3251 EACH PO
[2017-05-02 23:59] VITALS: BP 107/53
[2017-05-03] VITALS (8 sets, daily range): BP systolic 110–154; BP diastolic 43–73
[2017-05-03 00:21] LABS: BASO % 0.3 % (0.0-1.0); EOS # 0.4 10*3/uL (0.0-0.4); EOS % 3.6 % (1.0-4.0); HEMOGLOBIN 10.4 g/dl (12.0-16.0); MEAN CELL VOLUME 85.8 fl (81.0-99.0); MEAN CORPUSCULAR HGB 27.9 pg (27.0-31.0); MEAN CORPUSCULAR HGB CONC 32.5 g/dl (33.0-37.0); MEAN PLATELET VOLUME 11.6 fl (9.6-12.3); MONO # 0.7 10*3/uL (0.1-1.0); NEUT # 7.7 10*3/uL (2.3-7.9); NEUT % 64.9 % (47.0-73.0); PLATELET COUNT AUTOMATED 187 10*3/uL (130-400); RED BLOOD COUNT 3.73 10*6/uL (4.10-5.10); RED CELL DISTRI WIDTH 15.3 % (0-14.5); WHITE BLOOD COUNT 11.9 10*3/uL (4.8-10.8)
[2017-05-03 01:00] LABS: ALBUMIN 3.3 gm/dl (3.1-4.5); ALKALINE PHOSPHATASE 99 U/L (45-117); BUN 34 mg/dl (7-24); CHLORIDE 99 mmol/L (98-107); CREATININE 2.36 mg/dL (0.55-1.02); POTASSIUM 4.1 mmol/L (3.5-5.1); SGOT/AST 13 IU/L (3-35); SGPT/ALT 14 U/L (12-78); SODIUM 137 mmol/L (136-145); TOTAL PROTEIN 6.9 gm/dL (6.4-8.2)
[2017-05-03 01:03] LABS: TROPONIN I < 0.015 ng/ml (<0.045)
[2017-05-03 01:12] LABS: BILIRUBIN NEGATIVE (NEGATIVE); BLOOD 1+ (NEGATIVE); CLARITY CLOUDY (CLEAR); COLOR YELLOW (YELLOW); GLUCOSE NEGATIVE (NEGATIVE); KETONE TRACE (NEGATIVE); LEUKO ESTERASE 1+ (NEGATIVE); NITRITE NEGATIVE (NEGATIVE); SPECIFIC GRAVITY 1.025 (1.005-1.030); UROBILINOGEN 0.2 E.U./dl (0.2-1.0)
[2017-05-03 01:28] LABS: BACTERIA 2+; EPITHELIAL CELLS 20-25; RBC 21-30 rbc/hpf (0-2); WBC 16-20 wbc/hpf (0-5)
[2017-05-03 06:25] LABS: BASO % 0.4 % (0.0-1.0); EOS # 0.4 10*3/uL (0.0-0.4); EOS % 3.9 % (1.0-4.0); HEMATOCRIT 32.1 % (37.0-47.0); HEMOGLOBIN 10.3 g/dl (12.0-16.0); LYMPH # 2.6 10*3/uL (1.3-4.4); MEAN CELL VOLUME 87.2 fl (81.0-99.0); MEAN CORPUSCULAR HGB CONC 32.1 g/dl (33.0-37.0); MEAN PLATELET VOLUME 10.9 fl (9.6-12.3); MONO # 0.6 10*3/uL (0.1-1.0); NEUT # 6.7 10*3/uL (2.3-7.9); NEUT % 64.5 % (47.0-73.0); PLATELET COUNT AUTOMATED 164 10*3/uL (130-400); RED BLOOD COUNT 3.68 10*6/uL (4.10-5.10); RED CELL DISTRI WIDTH 15.3 % (0-14.5); WHITE BLOOD COUNT 10.3 10*3/uL (4.8-10.8)
[2017-05-03 06:53] LABS: CREATININE 1.96 mg/dL (0.55-1.02); POTASSIUM 4.1 mmol/L (3.5-5.1); TOTAL PROTEIN 6.4 gm/dL (6.4-8.2)
[2017-05-03] MEDS ORDERED: JANUVIA25 MG PO (09:28)
[2017-05-03] MEDS ORDERED: PROVENTIL HFA6.7 GM INH (09:36)
[2017-05-04] VITALS: BP 129/53
[2017-05-04 06:41] LABS: CHLORIDE 107 mmol/L (98-107); CREATININE 0.93 mg/dL (0.55-1.02); POTASSIUM 4.2 mmol/L (3.5-5.1); SODIUM 143 mmol/L (136-145)
[2017-05-04 06:55] LABS: BUN 20 mg/dl (7-24)
[2017-05-04 08:00] VITALS: BP 118/64
[2017-05-04 12:00] VITALS: BP 120/62
[2017-05-04 16:00] VITALS: BP 153/93
[2017-05-04 20:00] VITALS: BP 144/81
[2017-05-05] VITALS: BP 119/80
[2017-05-05 06:30] VITALS: BP 118/80
[2017-05-05 07:04] LABS: BASO % 0.4 % (0.0-1.0); EOS # 0.2 10*3/uL (0.0-0.4); EOS % 4.7 % (1.0-4.0); HEMATOCRIT 27.6 % (37.0-47.0); HEMOGLOBIN 8.7 g/dl (12.0-16.0); LYMPH # 1.8 10*3/uL (1.3-4.4); LYMPH % 35.7 % (27.0-41.0); MEAN CELL VOLUME 87.1 fl (81.0-99.0); MEAN CORPUSCULAR HGB 27.4 pg (27.0-31.0); MEAN CORPUSCULAR HGB CONC 31.5 g/dl (33.0-37.0); MEAN PLATELET VOLUME 11.5 fl (9.6-12.3); MONO # 0.4 10*3/uL (0.1-1.0); MONO % 8.2 % (3.0-9.0); NEUT # 2.6 10*3/uL (2.3-7.9); NEUT % 50.8 % (47.0-73.0); PLATELET COUNT AUTOMATED 128 10*3/uL (130-400); RED BLOOD COUNT 3.17 10*6/uL (4.10-5.10); RED CELL DISTRI WIDTH 15.1 % (0-14.5); WHITE BLOOD COUNT 5.1 10*3/uL (4.8-10.8)
[2017-05-05 07:11] LABS: CHLORIDE 106 mmol/L (98-107); CREATININE 0.73 mg/dL (0.55-1.02); POTASSIUM 4.1 mmol/L (3.5-5.1); SODIUM 143 mmol/L (136-145)
[2017-05-05 07:12] LABS: BUN 10 mg/dl (7-24)
[2017-05-05 12:00] VITALS: BP 119/85
[2017-05-05 16:00] VITALS: BP 165/77
[2017-05-05 20:00] VITALS: BP 164/65
[2017-05-06] VITALS (7 sets, daily range): BP systolic 152–198; BP diastolic 63–88
[2017-05-06 06:55] LABS: BASO % 0.5 % (0.0-1.0); EOS # 0.3 10*3/uL (0.0-0.4); EOS % 5.3 % (1.0-4.0); HEMATOCRIT 27.9 % (37.0-47.0); HEMOGLOBIN 8.7 g/dl (12.0-16.0); LYMPH # 2.4 10*3/uL (1.3-4.4); LYMPH % 39.5 % (27.0-41.0); MEAN CELL VOLUME 86.6 fl (81.0-99.0); MEAN CORPUSCULAR HGB CONC 31.2 g/dl (33.0-37.0); MEAN PLATELET VOLUME 11.3 fl (9.6-12.3); MONO # 0.5 10*3/uL (0.1-1.0); MONO % 8.8 % (3.0-9.0); NEUT # 2.8 10*3/uL (2.3-7.9); NEUT % 45.7 % (47.0-73.0); PLATELET COUNT AUTOMATED 137 10*3/uL (130-400); RED BLOOD COUNT 3.22 10*6/uL (4.10-5.10); RED CELL DISTRI WIDTH 15.4 % (0-14.5)
[2017-05-06 07:30] LABS: CHLORIDE 108 mmol/L (98-107); POTASSIUM 3.7 mmol/L (3.5-5.1); SODIUM 143 mmol/L (136-145)
[2017-05-06 07:48] LABS: BUN 6 mg/dl (7-24); CREATININE 0.71 mg/dL (0.55-1.02)
[2017-05-06] MEDS ORDERED: Insulin Lispro, Reco SC (12:07)
[2017-05-06] MEDS ORDERED: TYLENOL325 M2 PO (12:07)
[2017-05-06] MEDS ORDERED: NORCO 7.5-3251 EACH PO (12:09)
[2017-05-06] MEDS ORDERED: NEURONTIN100 MG PO (12:09)
[2017-05-07] VITALS: BP 188/80
[2017-05-07 03:58] VITALS: BP 180/72
[2017-05-07 08:00] VITALS: BP 188/86
[2017-05-07 12:15] VITALS: BP 189/60
[2017-05-07 16:00] VITALS: BP 173/89
[2017-05-07 20:00] VITALS: BP 182/62
[2017-05-08] VITALS: BP 175/71
[2017-05-08 08:00] VITALS: BP 180/76
[2017-05-08 12:00] VITALS: BP 186/76
[2017-05-08 16:00] VITALS: BP 150/68
[2017-05-08 20:00] VITALS: BP 155/50
[2017-05-09] VITALS: BP 148/73
[2017-05-09 08:00] VITALS: BP 179/72
[2017-05-09 12:00] VITALS: BP 160/82
[2017-05-09 16:07] VITALS: BP 152/67
== END 2017-05-09 17:02 | disposition home or self-care (01) | DRG 682 ==
LOC: ED 23:41 → 5E 05-03 01:11 → EDHOLD 05-03 01:11 → 5E 05-03 01:19
PROVIDERS: Family Medicine Adult Medicine; Internal Medicine; Student in an Organized Health Care Education/Training Program
DX: N17.0 Acute kidney failure with tubular necrosis (principal); E43 Unspecified severe protein-calorie malnutrition; J96.11 Chronic respiratory failure with hypoxia; E11.40 Type 2 diabetes mellitus with diabetic neuropathy, unspecified; E87.2 Acidosis; D64.9 Anemia, unspecified; E86.0 Dehydration; S62.109A Fracture of unspecified carpal bone, unspecified wrist, initial encounter for closed fracture; N39.0 Urinary tract infection, site not specified; K57.90 Diverticulosis of intestine, part unspecified, without perforation or abscess without bleeding; M19.011 Primary osteoarthritis, right shoulder; Z96.653 Presence of artificial knee joint, bilateral; J44.9 Chronic obstructive pulmonary disease, unspecified; R31.9 Hematuria, unspecified; F41.9 Anxiety disorder, unspecified; W19.XXXA Unspecified fall, initial encounter; G89.29 Other chronic pain; M54.9 Dorsalgia, unspecified; I25.10 Atherosclerotic heart disease of native coronary artery without angina pectoris; I10 Essential (primary) hypertension; F32.9 Major depressive disorder, single episode, unspecified; K21.9 Gastro-esophageal reflux disease without esophagitis; E78.00 Pure hypercholesterolemia, unspecified; Z88.8 Allergy status to other drugs, medicaments and biological substances; Z79.899 Other long term (current) drug therapy; Z90.710 Acquired absence of both cervix and uterus; Z87.891 Personal history of nicotine dependence; Z79.82 Long term (current) use of aspirin; Z79.51 Long term (current) use of inhaled steroids; Z79.84 Long term (current) use of oral hypoglycemic drugs; Y93.89 Activity, other specified; Y92.89 Other specified places as the place of occurrence of the external cause; Y99.8 Other external cause status; Z68.27 Body mass index [BMI] 27.0-27.9, adult

== ENCOUNTER 2017-05-24 14:57 | Emergency (ER) | payer MEDICARE ==
[~2017-05-24] VITALS: Wt 63.5 kg
[~2017-05-24 14:57] MED LIST changes: +Insulin Lispro, Reco SC; +JANUVIA25 MG PO; +PROVENTIL HFA6.7 GM INH; +TYLENOL325 M2 PO
[2017-05-24 15:35] LABS: BASO # 0.1 10*3/uL (0.0-0.1); BASO % 0.5 % (0.0-1.0); EOS # 0.2 10*3/uL (0.0-0.4); EOS % 1.7 % (1.0-4.0); HEMATOCRIT 35.1 % (37.0-47.0); LYMPH % 21.7 % (27.0-41.0); MEAN CELL VOLUME 88.4 fl (81.0-99.0); MEAN CORPUSCULAR HGB 27.7 pg (27.0-31.0); MEAN CORPUSCULAR HGB CONC 31.3 g/dl (33.0-37.0); MEAN PLATELET VOLUME 11.4 fl (9.6-12.3); MONO # 0.6 10*3/uL (0.1-1.0); MONO % 6.9 % (3.0-9.0); NEUT # 6.4 10*3/uL (2.3-7.9); PLATELET COUNT AUTOMATED 233 10*3/uL (130-400); RED BLOOD COUNT 3.97 10*6/uL (4.10-5.10); RED CELL DISTRI WIDTH 15.3 % (0-14.5); WHITE BLOOD COUNT 9.3 10*3/uL (4.8-10.8)
[2017-05-24 15:36] LABS: BILIRUBIN 1+ (NEGATIVE); BLOOD NEGATIVE (NEGATIVE); CLARITY CLEAR (CLEAR); COLOR YELLOW (YELLOW); GLUCOSE NEGATIVE (NEGATIVE); KETONE TRACE (NEGATIVE); LEUKO ESTERASE NEGATIVE (NEGATIVE); NITRITE NEGATIVE (NEGATIVE); UROBILINOGEN 0.2 E.U./dl (0.2-1.0)
[2017-05-24 15:55] LABS: ALBUMIN 3.1 gm/dl (3.1-4.5); CREATININE 1.59 mg/dL (0.55-1.02); POTASSIUM 4.2 mmol/L (3.5-5.1); TOTAL PROTEIN 6.8 gm/dL (6.4-8.2); TROPONIN I 0.039 ng/ml (<0.045)
[2017-05-24 16:29] LABS: BACTERIA 1+; EPITHELIAL CELLS TNTC; HYALINE CAST TNTC
[2017-05-24 16:30] LABS: RBC 0-2 rbc/hpf (0-2)
== END 2017-05-24 17:24 | disposition home or self-care (01) ==
LOC: ED 14:57
PROVIDERS: Emergency Medicine
DX: R53.1 Weakness (principal); I25.10 Atherosclerotic heart disease of native coronary artery without angina pectoris; F41.9 Anxiety disorder, unspecified; G89.29 Other chronic pain; J44.9 Chronic obstructive pulmonary disease, unspecified; I10 Essential (primary) hypertension; K21.9 Gastro-esophageal reflux disease without esophagitis; E78.00 Pure hypercholesterolemia, unspecified; E11.40 Type 2 diabetes mellitus with diabetic neuropathy, unspecified; Z90.710 Acquired absence of both cervix and uterus; Z79.82 Long term (current) use of aspirin; Z88.8 Allergy status to other drugs, medicaments and biological substances

== ENCOUNTER → 2017-06-06 | Outpatient (CLI) | payer MEDICARE | END | disposition home or self-care (01) | LOC: ORTHO 02:12 | DX: M19.032 Primary osteoarthritis, left wrist (principal); M19.031 Primary osteoarthritis, right wrist; Z91.81 History of falling ==

== ENCOUNTER 2017-07-28 01:20 | Inpatient (IN) | payer MEDICARE ==
[~2017-07-28] VITALS: Ht 154.9 cm; Wt 55.4 kg
[2017-07-28] VITALS (7 sets, daily range): BP systolic 99–149; BP diastolic 50–76
[2017-07-28 01:39] LABS: BASO % 0.5 % (0.0-1.0); EOS # 0.4 10*3/uL (0.0-0.4); EOS % 4.4 % (1.0-4.0); HEMATOCRIT 34.4 % (37.0-47.0); HEMOGLOBIN 11.2 g/dl (12.0-16.0); LYMPH # 3.2 10*3/uL (1.3-4.4); LYMPH % 36.5 % (27.0-41.0); MEAN CELL VOLUME 86.9 fl (81.0-99.0); MEAN CORPUSCULAR HGB 28.3 pg (27.0-31.0); MEAN CORPUSCULAR HGB CONC 32.6 g/dl (33.0-37.0); MEAN PLATELET VOLUME 11.4 fl (9.6-12.3); MONO # 0.7 10*3/uL (0.1-1.0); MONO % 8.2 % (3.0-9.0); NEUT # 4.4 10*3/uL (2.3-7.9); NEUT % 50.2 % (47.0-73.0); PLATELET COUNT AUTOMATED 201 10*3/uL (130-400); RED BLOOD COUNT 3.96 10*6/uL (4.10-5.10); RED CELL DISTRI WIDTH 13.9 % (0-14.5); WHITE BLOOD COUNT 8.7 10*3/uL (4.8-10.8)
[2017-07-28 01:57] LABS: ALKALINE PHOSPHATASE 90 U/L (45-117); BUN 10 mg/dl (7-24); CHLORIDE 103 mmol/L (98-107); CREATININE 1.15 mg/dL (0.55-1.02); POTASSIUM 4.2 mmol/L (3.5-5.1); SGOT/AST 17 IU/L (3-35); SGPT/ALT 14 U/L (12-78); SODIUM 138 mmol/L (136-145); TOTAL PROTEIN 7.3 gm/dL (6.4-8.2)
[2017-07-28 01:58] LABS: TROPONIN I < 0.015 ng/ml (<0.045)
[2017-07-28 02:07] LABS: BILIRUBIN NEGATIVE (NEGATIVE); BLOOD NEGATIVE (NEGATIVE); CLARITY CLEAR (CLEAR); COLOR YELLOW (YELLOW); GLUCOSE NEGATIVE (NEGATIVE); KETONE NEGATIVE (NEGATIVE); LEUKO ESTERASE NEGATIVE (NEGATIVE); NITRITE NEGATIVE (NEGATIVE); UROBILINOGEN 0.2 E.U./dl (0.2-1.0)
[2017-07-28 02:34] LABS: EPITHELIAL CELLS 0-5; WBC 0-2 wbc/hpf (0-5)
[2017-07-28 07:07] LABS: BASO # 0.1 10*3/uL (0.0-0.1); BASO % 0.5 % (0.0-1.0); EOS # 0.5 10*3/uL (0.0-0.4); EOS % 4.9 % (1.0-4.0); HEMATOCRIT 32.7 % (37.0-47.0); HEMOGLOBIN 10.5 g/dl (12.0-16.0); LYMPH # 3.5 10*3/uL (1.3-4.4); LYMPH % 38.1 % (27.0-41.0); MEAN CELL VOLUME 88.1 fl (81.0-99.0); MEAN CORPUSCULAR HGB 28.3 pg (27.0-31.0); MEAN CORPUSCULAR HGB CONC 32.1 g/dl (33.0-37.0); MEAN PLATELET VOLUME 11.7 fl (9.6-12.3); MONO # 0.8 10*3/uL (0.1-1.0); MONO % 8.5 % (3.0-9.0); NEUT # 4.4 10*3/uL (2.3-7.9); NEUT % 47.7 % (47.0-73.0); PLATELET COUNT AUTOMATED 191 10*3/uL (130-400); RED BLOOD COUNT 3.71 10*6/uL (4.10-5.10); RED CELL DISTRI WIDTH 13.9 % (0-14.5); WHITE BLOOD COUNT 9.2 10*3/uL (4.8-10.8)
[2017-07-28 07:28] LABS: ALBUMIN 2.9 gm/dl (3.1-4.5); CREATININE 1.1 mg/dL (0.55-1.02); PHOSPHOROUS 3.2 mg/dL (2.5-4.9); POTASSIUM 4.1 mmol/L (3.5-5.1)
[2017-07-28 07:36] LABS: THYROID STIM HORMONE (HS) 1.73 uIU/ml (0.358-4.75); TOTAL PROTEIN 6.7 gm/dL (6.4-8.2)
[2017-07-28 07:40] LABS: ACT PARTIAL THROMBO TIME 26.9 SECONDS (20.8-31.5)
[2017-07-28 08:10] LABS: VITAMIN D, 25-HYDROXY 55.1 ng/mL (30-100)
[2017-07-29] VITALS: BP 117/87
[2017-07-29 07:11] LABS: BASO % 0.2 % (0.0-1.0); HEMATOCRIT 32.1 % (37.0-47.0); HEMOGLOBIN 10.4 g/dl (12.0-16.0); LYMPH # 0.7 10*3/uL (1.3-4.4); LYMPH % 12.5 % (27.0-41.0); MEAN CELL VOLUME 86.5 fl (81.0-99.0); MEAN CORPUSCULAR HGB CONC 32.4 g/dl (33.0-37.0); MEAN PLATELET VOLUME 11.4 fl (9.6-12.3); MONO % 0.8 % (3.0-9.0); NEUT # 4.5 10*3/uL (2.3-7.9); NEUT % 85.9 % (47.0-73.0); PLATELET COUNT AUTOMATED 185 10*3/uL (130-400); RED BLOOD COUNT 3.71 10*6/uL (4.10-5.10); RED CELL DISTRI WIDTH 13.7 % (0-14.5); WHITE BLOOD COUNT 5.3 10*3/uL (4.8-10.8)
[2017-07-29 07:34] LABS: BUN 10 mg/dl (7-24); CHLORIDE 105 mmol/L (98-107); CREATININE 0.89 mg/dL (0.55-1.02); POTASSIUM 3.8 mmol/L (3.5-5.1); SODIUM 140 mmol/L (136-145)
[2017-07-29 08:00] VITALS: BP 170/84
[2017-07-29 12:00] VITALS: BP 138/62
[2017-07-29 16:00] VITALS: BP 141/71
[2017-07-29 20:00] VITALS: BP 112/92
[2017-07-30 00:35] VITALS: BP 154/68
[2017-07-30 07:34] LABS: BASO % 0.1 % (0.0-1.0); HEMATOCRIT 28.7 % (37.0-47.0); HEMOGLOBIN 9.2 g/dl (12.0-16.0); LYMPH # 2.3 10*3/uL (1.3-4.4); LYMPH % 23.3 % (27.0-41.0); MEAN CELL VOLUME 87.5 fl (81.0-99.0); MEAN CORPUSCULAR HGB CONC 32.1 g/dl (33.0-37.0); MEAN PLATELET VOLUME 11.4 fl (9.6-12.3); MONO # 0.7 10*3/uL (0.1-1.0); MONO % 6.8 % (3.0-9.0); NEUT # 6.7 10*3/uL (2.3-7.9); NEUT % 69.5 % (47.0-73.0); PLATELET COUNT AUTOMATED 166 10*3/uL (130-400); RED BLOOD COUNT 3.28 10*6/uL (4.10-5.10); RED CELL DISTRI WIDTH 14.2 % (0-14.5); WHITE BLOOD COUNT 9.7 10*3/uL (4.8-10.8)
[2017-07-30 07:46] LABS: BUN 16 mg/dl (7-24); CHLORIDE 105 mmol/L (98-107); CREATININE 1.03 mg/dL (0.55-1.02); POTASSIUM 4.2 mmol/L (3.5-5.1); SODIUM 142 mmol/L (136-145)
[2017-07-30 08:00] VITALS: BP 166/62
[2017-07-30 08:03] LABS: INTERNATIONAL NORM RATIO 1.1 (2.0-3.5)
[2017-07-30 12:00] VITALS: BP 159/88
[2017-07-30 16:00] VITALS: BP 170/68
[2017-07-30 20:00] VITALS: BP 157/72
[2017-07-31] VITALS: BP 148/60; BP 151/130
[2017-07-31 08:00] VITALS: BP 174/86
[2017-07-31 08:12] LABS: BASO % 0.2 % (0.0-1.0); EOS % 0.3 % (1.0-4.0); LYMPH # 3.5 10*3/uL (1.3-4.4); LYMPH % 36.5 % (27.0-41.0); MEAN CELL VOLUME 88.8 fl (81.0-99.0); MEAN CORPUSCULAR HGB 27.7 pg (27.0-31.0); MEAN CORPUSCULAR HGB CONC 31.1 g/dl (33.0-37.0); MEAN PLATELET VOLUME 11.6 fl (9.6-12.3); MONO # 0.7 10*3/uL (0.1-1.0); MONO % 6.8 % (3.0-9.0); NEUT # 5.4 10*3/uL (2.3-7.9); PLATELET COUNT AUTOMATED 189 10*3/uL (130-400); RED BLOOD COUNT 4.12 10*6/uL (4.10-5.10); RED CELL DISTRI WIDTH 14.1 % (0-14.5); WHITE BLOOD COUNT 9.6 10*3/uL (4.8-10.8)
[2017-07-31 08:13] LABS: HEMATOCRIT 36.6 % (37.0-47.0); HEMOGLOBIN 11.4 g/dl (12.0-16.0)
[2017-07-31 08:34] LABS: ALBUMIN 2.9 gm/dl (3.1-4.5); BUN 16 mg/dl (7-24); CHLORIDE 102 mmol/L (98-107); CREATININE 0.91 mg/dL (0.55-1.02); SGOT/AST 19 IU/L (3-35); SGPT/ALT 15 U/L (12-78); SODIUM 140 mmol/L (136-145)
[2017-07-31 08:36] LABS: ALKALINE PHOSPHATASE 72 U/L (45-117); TOTAL PROTEIN 6.9 gm/dL (6.4-8.2)
[2017-07-31 12:00] VITALS: BP 134/73
[2017-07-31] MEDS ORDERED: ATORVASTATIN CA40 M1 PO ×2 (12:52→13:02)
[2017-07-31] MEDS ORDERED: METOPROLOL SUC100 M1 PO ×2 (12:52→13:02)
[2017-07-31] MEDS ORDERED: XARE20MG PO ×2 (12:52→13:02)
[2017-07-31] MEDS ORDERED: NORCO 7.5-3251 EACH PO (12:53)
[2017-07-31] MEDS ORDERED: PREDNISONE10 MG PO (12:55)
[2017-07-31] MEDS ORDERED: DOXYCYCLINE100 M3 PO (12:55)
== END 2017-07-31 15:30 | disposition home or self-care (01) | DRG 682 ==
LOC: ED 01:20 → EDHOLD 02:22 → 5E 02:22
PROVIDERS: Internal Medicine; Internal Medicine Hospice and Palliative Medicine; Student in an Organized Health Care Education/Training Program
DX: N17.0 Acute kidney failure with tubular necrosis (principal); J18.1 Lobar pneumonia, unspecified organism; J96.10 Chronic respiratory failure, unspecified whether with hypoxia or hypercapnia; E11.42 Type 2 diabetes mellitus with diabetic polyneuropathy; D72.1 Eosinophilia; E11.65 Type 2 diabetes mellitus with hyperglycemia; E44.1 Mild protein-calorie malnutrition; J44.0 Chronic obstructive pulmonary disease with (acute) lower respiratory infection; I48.0 Paroxysmal atrial fibrillation; R55 Syncope and collapse; Z87.891 Personal history of nicotine dependence; J98.6 Disorders of diaphragm; R00.1 Bradycardia, unspecified; I25.10 Atherosclerotic heart disease of native coronary artery without angina pectoris; I10 Essential (primary) hypertension; F41.1 Generalized anxiety disorder; F32.9 Major depressive disorder, single episode, unspecified; K21.9 Gastro-esophageal reflux disease without esophagitis; K57.90 Diverticulosis of intestine, part unspecified, without perforation or abscess without bleeding; I34.0 Nonrheumatic mitral (valve) insufficiency; E78.00 Pure hypercholesterolemia, unspecified; M54.5 Low back pain; G89.29 Other chronic pain; D64.9 Anemia, unspecified; Z96.653 Presence of artificial knee joint, bilateral; E55.9 Vitamin D deficiency, unspecified; W19.XXXA Unspecified fall, initial encounter; Y93.89 Activity, other specified; Y92.098 Other place in other non-institutional residence as the place of occurrence of the external cause; Y99.8 Other external cause status; Z88.8 Allergy status to other drugs, medicaments and biological substances; I25.2 Old myocardial infarction; Z87.440 Personal history of urinary (tract) infections; Z90.710 Acquired absence of both cervix and uterus; Z79.82 Long term (current) use of aspirin; Z79.899 Other long term (current) drug therapy; Z79.84 Long term (current) use of oral hypoglycemic drugs; Z68.23 Body mass index [BMI] 23.0-23.9, adult

== ENCOUNTER → 2017-10-21 | Outpatient (CLI) | payer MEDICARE ==
[~2017-10-21] MED LIST changes: +AMIODARONE HYD200 MG PO; +ATARAX,VISTARIL10 MG PO; +ATORVASTATIN CA40 M1 PO; +CEFUROXIME AXE250 MG PO; +COZAAR50 M1 PO; +DOXYCYCLINE100 M3 PO; +HYDROCODONE-AC1 EAC1 PO; -JANUVIA25 MG PO; +JANUVIA50 MG PO; +KLOR-CON SPRIN10 MEQ PO; +MAGNESIUM OXID400 MG PO; +METFORMIN HYDR500 MG PO; -METFORMIN500 MG PO; +METOPROLOL SUC100 M1 PO; +METOPROLOL SUCC50 M1 PO; +NITROFURANTOIN100 M9 PO; +NOVOLOG100 UNIT/1 SQ; +PREDNISONE10 MG PO; +REMERON15 M2 PO; +SYNTHROID,LEVO75 MCG PO; +Synthroid,Levo50 MCG PO; +TYLENOL325 M1 PO; +VENTOLIN 02.5 MG/3 M INH; +VITAMIN C500 M4 PO; +VITAMIN D22000 UNIT PO; +XARE20MG PO
[2017-10-21 13:00] VITALS: BP 155/64
[2017-10-21 13:54] VITALS: BP 176/56
[2017-10-21 14:20] VITALS: BP 129/75
[2017-10-21 14:54] VITALS: BP 165/65
[2017-10-21 15:45] VITALS: BP 150/59
[2017-10-21 17:52] VITALS: BP 146/62
== END | disposition home or self-care (01) ==
LOC: TRNFUSION 11:21
DX: D58.2 Other hemoglobinopathies (principal)

== ENCOUNTER 2017-10-28 21:57 | Inpatient (IN) | payer MEDICARE ==
[~2017-10-28] VITALS: Ht 152.4 cm; Wt 52.6 kg
--- NOTE | ~2017-10-28 | EKG ---
[place], [place] ELECTROCARDIOGRAM REPORT NAME: AC GOODSON UNIT #: [id number] ROOM: 524 DOCTOR: EPIPHANY DRAFT REPORT BIRTHDATE: [birth year] [facility] Test Date: 2017-10-28 Test Time: 22:31:14 Pat Name: AC GOODSON Department: Room: 524 Gender: F Operator Prefinish: : 1930 Requested By: SHITAL PAGAN Order Number: [id number] Reading MD: Sancho Ferguson MD Measurements Intervals [place] Rate: 65 P: 27 DC: 183 QRS: -27 QRSD: 108 T: 23 QT: 423 QTc: 440 Interpretive Statements Sinus rhythm Borderline left axis deviation Low voltage limb leads Poor precordial R-wave progression Electronically Signed On 10-29-2017 15:46:50 PDT by Sancho Ferguson MD CM:EKGRPT:ELECTROCARDIOGRAM REPORT 1546 SHITAL PAGAN MD EPIPHANY DRAFT REPORT SHITAL PAGAN MD
[2017-10-28 21:57] VITALS: BP 174/73
[~2017-10-28 21:57] MED LIST changes: -ATARAX,VISTARIL10 MG PO; -CEFUROXIME AXE250 MG PO; -HYDROCODONE-AC1 EAC1 PO; -KLOR-CON SPRIN10 MEQ PO; -MAGNESIUM OXID400 MG PO; -NITROFURANTOIN100 M9 PO; -REMERON15 M2 PO; -SYNTHROID,LEVO75 MCG PO; -VENTOLIN 02.5 MG/3 M INH
[2017-10-28] MEDS ORDERED: KLOR-CON SPRIN10 MEQ PO (22:01)
[2017-10-28 22:38] LABS: BILIRUBIN 1+ (NEGATIVE); BLOOD NEGATIVE (NEGATIVE); CLARITY CLOUDY (CLEAR); COLOR YELLOW (YELLOW); GLUCOSE NEGATIVE (NEGATIVE); KETONE TRACE (NEGATIVE); LEUKO ESTERASE 3+ (NEGATIVE); NITRITE NEGATIVE (NEGATIVE)
[2017-10-28 22:45] LABS: BACTERIA 3+
[2017-10-28 22:46] LABS: WBC TNTC wbc/hpf (0-5)
[2017-10-28 22:52] LABS: BASO # 0.1 10*3/uL (0.0-0.1); BASO % 0.6 % (0.0-1.0); EOS # 0.3 10*3/uL (0.0-0.4); EOS % 3.1 % (1.0-4.0); HEMATOCRIT 42.7 % (37.0-47.0); HEMOGLOBIN 13.9 g/dl (12.0-16.0); LYMPH # 3.1 10*3/uL (1.3-4.4); LYMPH % 28.8 % (27.0-41.0); MEAN CELL VOLUME 85.6 fl (81.0-99.0); MEAN CORPUSCULAR HGB 27.9 pg (27.0-31.0); MEAN CORPUSCULAR HGB CONC 32.6 g/dl (33.0-37.0); MEAN PLATELET VOLUME 10.9 fl (9.6-12.3); MONO % 9.4 % (3.0-9.0); NEUT # 6.3 10*3/uL (2.3-7.9); NEUT % 57.9 % (47.0-73.0); PLATELET COUNT AUTOMATED 186 10*3/uL (130-400); RED BLOOD COUNT 4.99 10*6/uL (4.10-5.10); RED CELL DISTRI WIDTH 14.3 % (0-14.5); WHITE BLOOD COUNT 10.9 10*3/uL (4.8-10.8)
[2017-10-28 22:53] VITALS: BP 171/73
[2017-10-28 23:11] LABS: ALBUMIN 3.4 gm/dl (3.1-4.5); ALKALINE PHOSPHATASE 71 U/L (45-117); BUN 22 mg/dl (7-24); CHLORIDE 96 mmol/L (98-107); CREATININE 1.46 mg/dL (0.55-1.02); LIPASE 519 U/L (73-393); POTASSIUM 4.4 mmol/L (3.5-5.1); SGOT/AST 21 IU/L (3-35); SGPT/ALT 22 U/L (12-78); SODIUM 133 mmol/L (136-145); TOTAL PROTEIN 7.5 gm/dL (6.4-8.2)
[2017-10-28 23:14] LABS: TROPONIN I < 0.015 ng/ml (<0.045)
[2017-10-28 23:19] VITALS: BP 167/75
[2017-10-29 01:30] VITALS: BP 140/82
[2017-10-29 02:12] VITALS: BP 140/82
[2017-10-29 04:07] LABS: BASO # 0.1 10*3/uL (0.0-0.1); BASO % 0.7 % (0.0-1.0); EOS # 0.4 10*3/uL (0.0-0.4); EOS % 4.1 % (1.0-4.0); HEMATOCRIT 40.1 % (37.0-47.0); HEMOGLOBIN 13.1 g/dl (12.0-16.0); LYMPH # 3.1 10*3/uL (1.3-4.4); LYMPH % 29.3 % (27.0-41.0); MEAN CELL VOLUME 86.1 fl (81.0-99.0); MEAN CORPUSCULAR HGB 28.1 pg (27.0-31.0); MEAN CORPUSCULAR HGB CONC 32.7 g/dl (33.0-37.0); MEAN PLATELET VOLUME 10.9 fl (9.6-12.3); MONO % 9.3 % (3.0-9.0); NEUT # 5.9 10*3/uL (2.3-7.9); NEUT % 56.3 % (47.0-73.0); PLATELET COUNT AUTOMATED 183 10*3/uL (130-400); RED BLOOD COUNT 4.66 10*6/uL (4.10-5.10); RED CELL DISTRI WIDTH 14.2 % (0-14.5); WHITE BLOOD COUNT 10.4 10*3/uL (4.8-10.8)
[2017-10-29 04:23] LABS: CREATININE 1.22 mg/dL (0.55-1.02); PHOSPHOROUS 2.9 mg/dL (2.5-4.9); POTASSIUM 4.1 mmol/L (3.5-5.1); TOTAL PROTEIN 6.8 gm/dL (6.4-8.2)
[2017-10-29 08:00] VITALS: BP 120/70
[2017-10-29 12:00] VITALS: BP 164/59
[2017-10-29 16:00] VITALS: BP 169/52
[2017-10-29 20:00] VITALS: BP 163/57
[2017-10-30] VITALS: BP 150/59
[2017-10-30 06:12] LABS: BASO % 0.4 % (0.0-1.0); EOS # 0.2 10*3/uL (0.0-0.4); EOS % 2.6 % (1.0-4.0); HEMATOCRIT 36.5 % (37.0-47.0); HEMOGLOBIN 12.1 g/dl (12.0-16.0); LYMPH # 2.2 10*3/uL (1.3-4.4); LYMPH % 23.4 % (27.0-41.0); MEAN CELL VOLUME 85.7 fl (81.0-99.0); MEAN CORPUSCULAR HGB 28.4 pg (27.0-31.0); MEAN CORPUSCULAR HGB CONC 33.2 g/dl (33.0-37.0); MEAN PLATELET VOLUME 11.3 fl (9.6-12.3); MONO # 0.9 10*3/uL (0.1-1.0); MONO % 10.1 % (3.0-9.0); NEUT # 5.8 10*3/uL (2.3-7.9); NEUT % 63.3 % (47.0-73.0); PLATELET COUNT AUTOMATED 180 10*3/uL (130-400); RED BLOOD COUNT 4.26 10*6/uL (4.10-5.10); RED CELL DISTRI WIDTH 14.1 % (0-14.5); WHITE BLOOD COUNT 9.2 10*3/uL (4.8-10.8)
[2017-10-30 06:22] LABS: BUN 12 mg/dl (7-24); CHLORIDE 100 mmol/L (98-107); CREATININE 0.91 mg/dL (0.55-1.02); POTASSIUM 3.4 mmol/L (3.5-5.1); SODIUM 137 mmol/L (136-145)
[2017-10-30 08:00] VITALS: BP 190/80
[2017-10-30 11:40] VITALS: BP 126/72
[2017-10-30 16:00] VITALS: BP 140/53
[2017-10-30 20:00] VITALS: BP 154/68
[2017-10-31] VITALS: BP 170/58
[2017-10-31 06:27] LABS: BASO # 0.1 10*3/uL (0.0-0.1); BASO % 0.5 % (0.0-1.0); EOS # 0.3 10*3/uL (0.0-0.4); EOS % 3.4 % (1.0-4.0); HEMATOCRIT 38.1 % (37.0-47.0); HEMOGLOBIN 12.3 g/dl (12.0-16.0); LYMPH # 2.4 10*3/uL (1.3-4.4); LYMPH % 25.7 % (27.0-41.0); MEAN CELL VOLUME 87.4 fl (81.0-99.0); MEAN CORPUSCULAR HGB 28.2 pg (27.0-31.0); MEAN CORPUSCULAR HGB CONC 32.3 g/dl (33.0-37.0); MEAN PLATELET VOLUME 11.3 fl (9.6-12.3); MONO # 0.8 10*3/uL (0.1-1.0); MONO % 8.4 % (3.0-9.0); NEUT # 5.7 10*3/uL (2.3-7.9); NEUT % 61.7 % (47.0-73.0); PLATELET COUNT AUTOMATED 195 10*3/uL (130-400); RED BLOOD COUNT 4.36 10*6/uL (4.10-5.10); WHITE BLOOD COUNT 9.2 10*3/uL (4.8-10.8)
[2017-10-31 06:42] LABS: ALBUMIN 2.7 gm/dl (3.1-4.5); ALKALINE PHOSPHATASE 61 U/L (45-117); BUN 10 mg/dl (7-24); CHLORIDE 99 mmol/L (98-107); PHOSPHOROUS 2.9 mg/dL (2.5-4.9); POTASSIUM 3.3 mmol/L (3.5-5.1); SGOT/AST 13 IU/L (3-35); SGPT/ALT 13 U/L (12-78); SODIUM 136 mmol/L (136-145); TOTAL PROTEIN 6.7 gm/dL (6.4-8.2)
[2017-10-31 08:00] VITALS: BP 190/73
[2017-10-31 12:00] VITALS: BP 134/58
[2017-10-31 15:22] LABS: ALBUMIN 2.7 gm/dl (3.1-4.5); ALKALINE PHOSPHATASE 62 U/L (45-117); BUN 12 mg/dl (7-24); CHLORIDE 100 mmol/L (98-107); CREATININE 0.96 mg/dL (0.55-1.02); POTASSIUM 3.1 mmol/L (3.5-5.1); SGOT/AST 13 IU/L (3-35); SGPT/ALT 13 U/L (12-78); SODIUM 137 mmol/L (136-145); TOTAL PROTEIN 6.8 gm/dL (6.4-8.2)
[2017-10-31 16:04] VITALS: BP 166/65
[2017-10-31 20:00] VITALS: BP 173/62
[2017-11-01] VITALS: BP 180/72
[2017-11-01 01:30] VITALS: BP 186/72
[2017-11-01 05:30] VITALS: BP 182/90
[2017-11-01 06:39] LABS: BUN 12 mg/dl (7-24); CHLORIDE 100 mmol/L (98-107); CREATININE 0.85 mg/dL (0.55-1.02); SODIUM 136 mmol/L (136-145)
[2017-11-01 06:45] LABS: POTASSIUM 4.7 mmol/L (3.5-5.1)
[2017-11-01 08:00] VITALS: BP 180/80
[2017-11-01] MEDS ORDERED: VENLAFAXINE HYD75 MG PO (11:40)
[2017-11-01] MEDS ORDERED: CEFUROXIME AXE250 MG PO (11:40)
[2017-11-01] MEDS ORDERED: ATARAX,VISTARIL10 MG PO (11:40)
[2017-11-01] MEDS ORDERED: MAGNESIUM OXID400 MG PO (11:40)
[2017-11-11] MEDS ORDERED: HYDROCODONE-AC1 EAC1 PO (11:39)
[2017-11-11] MEDS ORDERED: REMERON15 M2 PO (12:20)
[2017-11-11] MEDS ORDERED: VENTOLIN 02.5 MG/3 M INH (12:43)
== END 2017-11-01 13:54 | disposition other institution (70) | DRG 871 ==
LOC: ED 21:57 → EDHOLD 23:52 → 5E 23:52
PROVIDERS: Emergency Medicine Emergency Medical Services; Internal Medicine; Registered Nurse; Student in an Organized Health Care Education/Training Program
DX: A41.9 Sepsis, unspecified organism (principal); G93.41 Metabolic encephalopathy; N17.0 Acute kidney failure with tubular necrosis; E44.0 Moderate protein-calorie malnutrition; E87.2 Acidosis; E11.42 Type 2 diabetes mellitus with diabetic polyneuropathy; E11.65 Type 2 diabetes mellitus with hyperglycemia; I48.0 Paroxysmal atrial fibrillation; R82.2 Biliuria; E83.42 Hypomagnesemia; E87.1 Hypo-osmolality and hyponatremia; N39.0 Urinary tract infection, site not specified; B96.89 Other specified bacterial agents as the cause of diseases classified elsewhere; E87.8 Other disorders of electrolyte and fluid balance, not elsewhere classified; R79.82 Elevated C-reactive protein (CRP); R74.8 Abnormal levels of other serum enzymes; R94.6 Abnormal results of thyroid function studies; J44.9 Chronic obstructive pulmonary disease, unspecified; I25.10 Atherosclerotic heart disease of native coronary artery without angina pectoris; I10 Essential (primary) hypertension; E78.00 Pure hypercholesterolemia, unspecified; M54.9 Dorsalgia, unspecified; G89.29 Other chronic pain; F41.9 Anxiety disorder, unspecified; F32.9 Major depressive disorder, single episode, unspecified; K21.9 Gastro-esophageal reflux disease without esophagitis; K57.90 Diverticulosis of intestine, part unspecified, without perforation or abscess without bleeding; Z96.653 Presence of artificial knee joint, bilateral; Z66 Do not resuscitate; Z51.5 Encounter for palliative care; R29.6 Repeated falls; Z88.8 Allergy status to other drugs, medicaments and biological substances; Z79.899 Other long term (current) drug therapy; Z79.82 Long term (current) use of aspirin; Z79.4 Long term (current) use of insulin; I25.2 Old myocardial infarction; Z87.01 Personal history of pneumonia (recurrent); Z90.710 Acquired absence of both cervix and uterus; Z87.891 Personal history of nicotine dependence; Z68.22 Body mass index [BMI] 22.0-22.9, adult

== ENCOUNTER 2017-12-10 16:00 | Emergency (ER) | payer MEDICARE ==
[~2017-12-10] VITALS: Ht 157.4 cm; Wt 56.7 kg
[~2017-12-10 16:00] MED LIST changes: +ATARAX,VISTARIL10 MG PO; +CEFUROXIME AXE250 MG PO; +HYDROCODONE-AC1 EAC1 PO; +KLOR-CON SPRIN10 MEQ PO; +MAGNESIUM OXID400 MG PO; +NITROFURANTOIN100 M9 PO; +REMERON15 M2 PO; +SYNTHROID,LEVO75 MCG PO; +VENTOLIN 02.5 MG/3 M INH
[2017-12-10 17:19] LABS: BILIRUBIN NEGATIVE (NEGATIVE); BLOOD NEGATIVE (NEGATIVE); CLARITY SL CLOUDY (CLEAR); COLOR YELLOW (YELLOW); GLUCOSE NEGATIVE (NEGATIVE); KETONE NEGATIVE (NEGATIVE); LEUKO ESTERASE NEGATIVE (NEGATIVE); NITRITE NEGATIVE (NEGATIVE); UROBILINOGEN 0.2 E.U./dl (0.2-1.0)
[2017-12-10 17:33] LABS: BACTERIA 4+; RBC 0-2 rbc/hpf (0-2)
[2017-12-19] MEDS ORDERED: FEROSUL325 MG PO (21:54)
[2017-12-19] MEDS ORDERED: JANUVIA25 MG PO (21:57)
[2017-12-19] MEDS ORDERED: MACROBID100 M1 PO (21:57)
[2017-12-20] MEDS ORDERED: Ipratropium Brom3 ML INH (01:23)
[2017-12-24] MEDS ORDERED: DOXYCYCLINE100 MG PO (09:24)
[2017-12-24] MEDS ORDERED: MUCINEX ER600 MG PO (09:24)
[2017-12-24] MEDS ORDERED: PREDNISONE10 MG PO (09:25)
== END 2017-12-10 17:58 | disposition other institution (70) ==
LOC: ED 16:00
PROVIDERS: Nurse Practitioner Family
DX: Z04.8 Encounter for examination and observation for other specified reasons (principal); F03.90 Unspecified dementia, unspecified severity, without behavioral disturbance, psychotic disturbance, mood disturbance, and anxiety; I25.10 Atherosclerotic heart disease of native coronary artery without angina pectoris; G89.29 Other chronic pain; J44.9 Chronic obstructive pulmonary disease, unspecified; E11.40 Type 2 diabetes mellitus with diabetic neuropathy, unspecified; K21.9 Gastro-esophageal reflux disease without esophagitis; I10 Essential (primary) hypertension; E03.9 Hypothyroidism, unspecified; I25.2 Old myocardial infarction; I48.0 Paroxysmal atrial fibrillation; Z87.891 Personal history of nicotine dependence; Z90.710 Acquired absence of both cervix and uterus; Z98.890 Other specified postprocedural states; Z88.8 Allergy status to other drugs, medicaments and biological substances; Z79.82 Long term (current) use of aspirin; W19.XXXA Unspecified fall, initial encounter; Y93.89 Activity, other specified; Y92.129 Unspecified place in nursing home as the place of occurrence of the external cause; Y99.8 Other external cause status

== ENCOUNTER 2018-01-03 13:12 | Emergency (ER) | payer MEDICARE ==
[~2018-01-03] VITALS: Ht 152.4 cm; Wt 53.5 kg
[~2018-01-03 13:12] MED LIST changes: +FEROSUL325 MG PO; +Ipratropium Brom3 ML INH; +JANUVIA25 MG PO; +MACROBID100 M1 PO; +MUCINEX ER600 MG PO
[2018-01-03 14:26] LABS: BASO % 0.1 % (0.0-1.0); EOS # 0.1 10*3/uL (0.0-0.4); EOS % 0.4 % (1.0-4.0); HEMATOCRIT 40.5 % (37.0-47.0); HEMOGLOBIN 13.1 g/dl (12.0-16.0); LYMPH # 3.4 10*3/uL (1.3-4.4); LYMPH % 19.2 % (27.0-41.0); MEAN CELL VOLUME 83.3 fl (81.0-99.0); MEAN CORPUSCULAR HGB CONC 32.3 g/dl (33.0-37.0); MEAN PLATELET VOLUME 12.7 fl (9.6-12.3); MONO % 5.9 % (3.0-9.0); NEUT # 13.1 10*3/uL (2.3-7.9); NEUT % 73.8 % (47.0-73.0); PLATELET COUNT AUTOMATED 176 10*3/uL (130-400); RED BLOOD COUNT 4.86 10*6/uL (4.10-5.10); RED CELL DISTRI WIDTH 14.6 % (0-14.5); WHITE BLOOD COUNT 17.8 10*3/uL (4.8-10.8)
[2018-01-03 14:41] LABS: BILIRUBIN NEGATIVE (NEGATIVE); BLOOD TRACE-INTACT (NEGATIVE); CLARITY CLEAR (CLEAR); COLOR YELLOW (YELLOW); GLUCOSE 3+ (NEGATIVE); KETONE NEGATIVE (NEGATIVE); LEUKO ESTERASE NEGATIVE (NEGATIVE); NITRITE NEGATIVE (NEGATIVE); PH 6.5 (5.0-9.0); UROBILINOGEN 0.2 E.U./dl (0.2-1.0)
[2018-01-03 14:42] LABS: ALBUMIN 2.5 gm/dl (3.1-4.5); CREATININE 1.13 mg/dL (0.55-1.02); POTASSIUM 2.9 mmol/L (3.5-5.1); TOTAL PROTEIN 6.5 gm/dL (6.4-8.2)
[2018-01-03 14:48] LABS: YEAST 4+
[2018-01-03 14:49] LABS: BACTERIA 1+; EPITHELIAL CELLS 21-30
== END 2018-01-03 16:09 | disposition home or self-care (01) ==
LOC: ED 13:12
PROVIDERS: Nurse Practitioner Family
DX: R73.9 Hyperglycemia, unspecified (principal); E87.6 Hypokalemia; Z87.891 Personal history of nicotine dependence; Z90.710 Acquired absence of both cervix and uterus; Z88.8 Allergy status to other drugs, medicaments and biological substances; Z79.899 Other long term (current) drug therapy; Z79.82 Long term (current) use of aspirin

== ENCOUNTER 2018-05-15 13:47 | Emergency (ER) | payer MEDICARE | END 2018-05-15 16:00 | disposition home or self-care (01) | LOC: ED 13:47 | DX: S02.2XXA Fracture of nasal bones, initial encounter for closed fracture (principal); S00.12XA Contusion of left eyelid and periocular area, initial encounter; S00.11XA Contusion of right eyelid and periocular area, initial encounter; S00.81XA Abrasion of other part of head, initial encounter; I10 Essential (primary) hypertension; G89.29 Other chronic pain; I25.10 Atherosclerotic heart disease of native coronary artery without angina pectoris; J44.9 Chronic obstructive pulmonary disease, unspecified; K21.9 Gastro-esophageal reflux disease without esophagitis; E03.9 Hypothyroidism, unspecified; I25.2 Old myocardial infarction; I48.0 Paroxysmal atrial fibrillation; E11.40 Type 2 diabetes mellitus with diabetic neuropathy, unspecified; Z79.82 Long term (current) use of aspirin; Z88.8 Allergy status to other drugs, medicaments and biological substances; Z79.899 Other long term (current) drug therapy; Z79.2 Long term (current) use of antibiotics; Z79.84 Long term (current) use of oral hypoglycemic drugs; Z90.710 Acquired absence of both cervix and uterus; Z87.891 Personal history of nicotine dependence; W01.198A Fall on same level from slipping, tripping and stumbling with subsequent striking against other object, initial encounter; Y93.89 Activity, other specified; Y92.098 Other place in other non-institutional residence as the place of occurrence of the external cause; Y99.8 Other external cause status ==

== ENCOUNTER → 2019-01-26 | Day surgery (SDC) | payer MEDICARE ==
[~2019-01-26] MED LIST changes: +AMIODARONE HCL100 M1 PO; +CLARITIN10 MG PO; +COL-RITE100 M1 PO; +DULOXETINE HCL30 MG PO; +FLORASTOR250 MG PO; +LEVOXYL50 MCG PO; +LOSARTAN POTASS25 M1 PO; +MELATONIN3 MG PO; +MILK OF MA400 MG/51 PO; +NAMENDA10 MG PO; +PANTOPRAZOLE SO40 MG PO; +RIVASTIGMINE TAR6 M1 PO; +VITAMIN D31000 UNI1 PO
--- NOTE | ~2019-01-26 | O ---
[place], [place] OPERATIVE NOTE NAME: AC GOODSON UNIT #: [id number] ROOM: DOCTOR: PABLO PRECIADO MD BIRTHDATE: [birth year] DOS: 01/26/2019 INDICATIONS: This is an 88-year-old patient who has presented with chief complaint of upset stomach, epigastric distress, resident of the senior living. Positive emesis periodically. The patient with dementia, diffuse spots of ulcerations and scratch reyes on the extremities, anteroposterior thorax and extremities as possible scabies. FAMILY HISTORY: Noncontributory. PAST SURGICAL HISTORY: Uncertain. PAST MEDICAL HISTORY: Otherwise, atrial fibrillation, anxiety. Positive UTIs. SOCIAL HISTORY: Nonsmoker, nonalcohol consumer. PROCEDURE: Today's procedure part of investigation is panendoscopy plus biopsy. PREMEDICATION: Propofol. SCOPE: Olympus forward-viewing gastroscope Q10 video. REPORT: After putting the patient in left lateral position and application of lubricant to the scope, the scope was introduced. Thereafter, under direct visualization, advanced through the length of esophagus without difficulty into gastric pouch large volume of semi-liquid gastric contents was noticed. This was suctioned out. Evidence of gastritis was seen. Duodenal patency assured. Antral biopsy obtained. Photographic series done. The patient extubated, tolerated the procedure well. IMPRESSION: Gastric stasis and retained gastric liquid contents. This is most likely have to do with reflux over her hiatal hernia. PLAN AND DISCUSSION: She is already on pantoprazole 40 mg daily. We are going to add Reglan 5 mg before dinner and antireflux measures with elevation of the head of the bed, soft diet and clinical reassessment. [place], [place] OPERATIVE NOTE NAME: AC GOODSON UNIT #: [id number] ROOM: DOCTOR: PABLO PRECIADO MD BIRTHDATE: [birth year] PABLO PRECIADO MD CM:OPRECORD:OPERATIVE NOTE 1315 1406 PABLO PRECIADO MD 01/26/19 1405 interface
[2019-01-26 12:00] VITALS: BP 225/88
[2019-01-26 12:28] VITALS: BP 153/59
[2019-01-26 13:10] VITALS: BP 125/66
[2019-01-26 13:25] VITALS: BP 152/76
[2019-01-26 13:40] VITALS: BP 166/79
== END | disposition home or self-care (01) ==
LOC: SDC 01-24 08:00
DX: K29.70 Gastritis, unspecified, without bleeding (principal); K44.9 Diaphragmatic hernia without obstruction or gangrene; J43.9 Emphysema, unspecified; I10 Essential (primary) hypertension; E11.9 Type 2 diabetes mellitus without complications; F41.9 Anxiety disorder, unspecified; I48.91 Unspecified atrial fibrillation; Z98.890 Other specified postprocedural states; Z90.710 Acquired absence of both cervix and uterus; Z79.899 Other long term (current) drug therapy; Z88.8 Allergy status to other drugs, medicaments and biological substances